=== PATIENT | female | born 1985 | race Caucasian/White ===

== ENCOUNTER 2024-08-26 11:14 | Emergency (ER) | payer BC, SELFPAY ==
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
[2024-08-26] VITALS (7 sets, daily range): BP systolic 119–130; BP diastolic 88–102; PULSE 92–107; RESP 20; TEMP 36.9; O2SAT 96–100; BMI 22.7
--- OUTSIDE RECORDS SUMMARY | 2024-08-26 11:20 | XMS_ITS | Clinical Summary ---
Author Organization [facility] Address [address] [place] [address]. [place] [address] Care Team Providers Care Court Clerk Name Role Phone [facility], [facility] ovider Allergies No known active allergies Medications sertraline (ZOLOFT) 100 MG tablet Take 100 mg by mouth daily Active acetaminophen (TYLENOL) 325 MG tabletIndication s: (spontaneous vaginal delivery) Take 2 tablets (650 mg) by mouth every 6 hours as needed for mild pain or fever (greater than or equal to 38 C /100.4 F (oral) or 38.5 C/ 101.4 F (core).) 3 Active fluticasone (FLONASE) 50 MCG/ACT nasal spray [place] 1 spray into both nostrils daily Active ibuprofen (ADVIL/MOTRIN) 200 MG tablet Take 200 mg by mouth every 4 hours as needed for pain Active multivitamin, therapeutic (THERA-VIT) TABS tablet Take 1 tablet by mouth daily Active meclizine (ANTIVERT) 25 MG tabletIndication s:Vertigo Take 1 tablet (25 mg) by mouth every 6 hours 28 tablet 4 Active folic acid (FOLVITE) 1 MG tabletIndication s:Folate deficiency Take 1 tablet (1 mg) by mouth daily 30 tablet 4 Active Active Problems Problem Noted Date Diagnosed Date Folate deficiency 07/18/2023 Influenza A 07/18/2023 Hypokalemia 07/16/2023 Hypomagnesemia 07/16/2023 Dizziness 07/16/2023 (spontaneous vaginal delivery) 07/10/2022 Chronic hypertension with superimposed preeclamp yrn 07/10/2022 08/26/2019 Vaginal delivery 08/26/2019 Encounter for triage in patient 018 Indication for care in labor or delivery 018 (normal spontaneous vaginal delivery) 05/31 Labor and delivery, indication for care 05/21/19 18 Preeclampsia 04/23/2017 Indication for care in labor and delivery, antep artum 04/09/2017 CARDIOVASCULAR SCREENING; LDL GOAL LESS THAN 160 01/06/2010 Immunizations Immunization Administration Dates Next Due HPV 02/26/2009,11/03/2006 01/03/2007 HepB 06/07/1997,10/31/1993,09/30/1993 Historical DTP/aP 05/28/1990, 7,07/11/1985,05/03/1985,1 1984 MMR (MMRII) 04/24/1997,03/28/1986 Mantoux Tuberculin Skin Test 10/19/2003 Meningococcal (Menomune ) 10/19/2003 OPV, trivalent, live 05/28/1990,07/06/1986,05/03,02/23/1985 TD,PF 7+ (Tenivac) 04/24/1997 TDAP Vaccine (Adacel) 02/26/2009 Family History Medical History Relation Comments Family History Negative Father Thyroid Disease Maternal Aunt Thyroid Disease Maternal Grandmother Thyroid Disease Mother Cancer Other 1 MGGrandf and MGG randm Cerebrovascular Disease Other 2 MGGrandm and MGaunt Family History Negative Sister Relation Status Comments Father Maternal Aunt Maternal Grandmother Mother Other 1 Other 2 Sister Social History Tobacco Use Types Packs/Day Years Used Date Smoking Tobacco: Never Smokeless Tobacco: Never Tobacco Cessation:Counseling Given: Not Answered Alcohol Use Standard Drinks/Week Comments Yes 0 (1 standard drink = 0.6 oz pur e alcohol) socially Alexis Depression Scale Answer Date Recorded Last EPDS Total Score Not on file 07/10/2022 The thought of harming myself has occurred to me . 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 Gender Identity Not on file Sexual Orientation Not on file Occupation Industry Job Start Date Job End Date student Not on file Not on file Not on file Last Filed Vital Signs Vital Sign Reading Time Taken Comments Blood Pressure 127/88 07/21/2023 11:32 AM CDT Pulse 92 07/21/2023 11:32 AM CDT Temperature 36.7 C (98.1 F) 07/21/2023 11:32 AM CDT Respiratory Rate 16 07/21/2023 11:3 2 AM CDT Oxygen Saturation 100% 07/21/2023 11: 32 AM CDT Inhaled Oxygen Concentration - - Weight 69.3 kg (152 lb 11.2 oz) 07/17/2023 2:01 AM CDT Height 175.3 cm (5' 9) 07/17/2023 2:01 AM CDT Body Mass Index 22.55 07/17/2023 2:01 AM CDT Plan of Treatment Health Maintenance Due Date Last Done Comments ADVANCE CARE PLANNING 1985 ANNUAL REVIEW OF HM ORDERS 1985 YEARLY PREVENTIVE VISIT 03/22/2022 03/22/19, 03/22/2021, 07/25/2016, Additional history exists COVID-19 VACCINE ( season) 2023 03/22/2021, 07/16/2020, 06/25/2020 PHQ-2 (once per calendar year) 2024 INFLUENZA VACCINE (Season Ended) 2024 01/10/2022, 03/22/2021, 12/05/2019, Additional history exists DIABETES SCREENING 07/19/2026 07/20/2023, 0 07/19/2023, 07/18/2023, Additional history exists HPV TEST 09/03/2027 09/02/2022, 03/22/2021 PAP 09/03/2027 09/02/2022, 03/09, 03/22/2021, Additional history exists DTAP/TDAP/TD VACCINE (12 - Td or Tdap) 06/18/2032 06/18/2022, 06/20/2019, 04/29/2017, Additional history exists ZOSTER VACCINE (1 of 2) 2034 HEPATITIS B VACCINE Completed 06/07/1997, 06/07/1997, 10/31/1993, Additional history exists MENINGITIS VACCINE Aged Out 10/19/2003 No longer eligible based on patient's age to complete this topic HPV VACCINE Completed 10/29/2010, 02/07, 11/03/2006 HEPATITIS C SCREENING Completed 12/17/2021 HIV SCREENING Completed 07/16/2023, 12/07, 01/21/2019, Additional history exists PNEUMOCOCCAL VACCINE: PEDIATRICS (0 to 5 YEARS) AND AT-RISK PATIENTS (6 to 49 YEARS) Aged Out No longer eligible based on patient's age to complete this topic Procedures Procedure Name Priority Date/Time Associated Diagnosis Comments BASIC METABOLIC PANEL STAT 07/20/2023 9:59 AM CDT GYNECOLOGIC CYTOLOGY Routine 09/02/2022 3:50 PM CDT Encounter for screening for malignant neoplasm of cervix HPV HIGH RISK TYPES DNA CERVICAL Routine 09/02/2022 3:50 PM CDT Encounter for screening for malignant neoplasm of cervix HIV ANTIGEN ANTIBODY COMBO Routine 12/17/2021 2:20 PM CDT Encounter for supervision of other normal , first trimester [ICD-10-CM] HEPATITIS C ANTIBODY Routine 12/17/2021 2:20 PM CDT Encounter for supervision of other normal , first trimester [ICD-10-CM] from Last 3 Months or Most Recently Relevant to Health Maintenance Results * (ABNORMAL) Basic metabolic panel (07/20/2023 9:59 AM CDT) Sodium 142 135 - 145 mmol/L 07/20/2023 10:25 AM CDT [facility] Comment:Reference intervals for this test were updated on 12/02/2022 to more accurately reflect our healthy population. There may be differences in the flagging of prior results with similar values performed with this method. Interpretation of those prior results can be made in the context of the updated reference intervals. Potassium 4.5 3.4 - 5.3 mmol/L 07/20/2023 10:25 AM CDT LABORATORY Chloride 109(H) 98 - 107 mmol/L 07/20/2023 10:25 AM CDT LABORATORY Carbon Dioxide (CO2) 21(L) 22 - 29 mmol/L 07/20/2023 10:25 AM CDT LABORATORY Anion Gap 12 7 - 15 mmol/L 07/20/2023 10:25 AM CDT LABORATORY Urea Nitrogen 5.2(L) 6.0 - 20.0 mg/dL 07/20/2023 10:25 AM CDT LABORATORY Creatinine 0.58 0.51 - 0.95 mg/dL 07/20/2023 10:25 AM CDT LABORATORY GFR Estimate >90 >60 mL/min/1. 73m2 07/20/2023 10:25 AM CDT LABORATORY Calcium 8.8 8.6 - 10.0 mg/dL 07/20/2023 10:25 AM CDT LABORATORY Glucose 88 70 - 99 mg/dL 07/20/2023 10:25 AM CDT LABORATORY Blood BLOOD SPECIMEN / Unknown Venipuncture / Unknown 07/20/2023 9:59 AM CDT 07/20/2023 10:03 AM CDT us Aurora Malave PA-C LAB - BLOOD ORDERABLES Fin al Result LABORATORY [facility] Acute Care Lab [address] [facility] (1st floor, no room number) [place] [address], [facility] * (ABNORMAL) Gynecologic Cytology (PAP) (09/02/2022 3:50 PM CDT) Interpretation Atypical squamous cells of undetermined significance (ASC-US)(A) 09/05/2022 3:41 PM CDT [facility] at 1541 CDT Comment Papanicolaou Test Limitations: Cervical cytology is a screening test with limited sensitivity, and regular screening is critical for cancer prevention. Pap tests are primarily effective for the diagnosis/preven tion of squamous cell carcinoma, not adenocarcinoma or other cancers. 09/05/2022 3:41 PM CDT LABORATORY Specimen Adequacy Satisfactory for evaluation, endocervical/tra nsformation zone component present 09/05/2022 3:41 PM CDT [facility] Clinical Information post- 09/05/2022 3:41 PM CDT [facility] LMP/Menopause Date NONE 09/05/2022 3:41 PM CDT [facility] Reflex Testing Yes regardless of result 09/05/2022 3:41 PM CDT [facility] Previous Abnormal? No 09/05/2022 3:41 PM CDT [facility] Previous Abnormal Diagnosis Neg/Neg hpv 09/05/2022 3:41 PM CDT [facility] Performing Labs The technical component of this testing was completed at [facility] 09/05/2022 3:41 PM CDT [facility] Brushing CERVIX UTERI STRUCTURE / Unknown 09/02/2022 3:50 PM CDT 09/02/2022 8:21 PM CDT us Oriana Cummings MD LAB - RAGHUAKER AP Final Result LABORATORY [facility] Acute Care Lab [address] Lab (1st floor, no room number) [place] [address], [facility] [phone] [facility] Specialty Lab [address] [facility], Room [address] [place] [id number], [facility] [phone] * HPV High Risk Types DNA Cervical (09/02/2022 3:50 PM CDT) Other HR HPV Negative Negative 09/08/2022 1:25 PM CDT [facility] HPV16 DNA Negative Negative 09/08/2022 1:25 PM CDT [facility] HPV18 DNA Negative Negative 09/08/2022 1:25 PM CDT [facility] FINAL DIAGNOSIS This patient's sample is negative for HPV DNA. This test was developed and its performance characteristics determined by the [facility], [facility] Laboratory. It has not been cleared or approved by the FDA. The laboratory is regulated under CLIA as qualified to perform high-complexity testing. This test is used for clinical purposes. It should not be regarded as investigational or for research. METHODOLOGY: The Stiven Dahiana 4800 system uses automated extraction, simultaneous amplification of HPV (L1 region) and beta-globin, followed by real time detection of fluorescent labeled HPV and beta globin using specific oligonucleotide probes. The test specifically identifies types HPV 16 DNA and HPV 18 DNA while concurrently detecting the rest of the high risk types (31, 33, 35, 39, 45, 51, 52, 56, 58, 59, 66 or 68). COMMENTS: This test is not intended for use as a screening device for woman under age 30 with normal cervical cytology. Results should be correlated with cytologic and histologic findings. Close clinical followup is recommended. 09/08/2022 1:25 PM CDT [facility] Brushing CERVIX UTERI STRUCTURE / Unknown Non-blood Collection / Unknown 09/02/2022 3:50 PM CDT 09/08/2022 7:46 AM CDT Oriana Cummings MD LAB - BLOOD ORDERABLES Final R esult [facility] [address] [facility], [address] [place] [phone], [facility] [phone] * HIV Antigen Antibody Combo (12/17/2021 2:20 PM CDT) HIV Antigen Antibody Combo Nonreactive Nonreactive 12/18/2021 11:08 AM CDT [facility] CORE/PROT/EN DO Comment:HIV-1 p24 Ag & HIV-1 /HIV-2 Ab Not Detected Blood BLOOD SPECIMEN / Unknown Client Draw / Unknown 12/17/2021 2:20 PM CDT 12/17/2021 8:39 PM CDT Oriana Cummings MD LAB - BLOOD ORDERABLES Final R esult [facility]/PROT/ENDO [facility]/Prot/Endo [address] [facility] [address] [facility], Room [address] [phone] * Hepatitis C antibody (12/17/2021 2:20 PM CDT) Hepatitis C Antibody Nonreactive Nonreactive 12/18/2021 11:08 AM CDT [facility]PROT/EN DO Blood BLOOD SPECIMEN / Unknown Client Draw / Unknown 12/17/2021 2:20 PM CDT 12/17/2021 8:39 PM CDT Narrative [facility]/PROT/ENDO - 12/18/2021 11:08 AM CDT Assay performance characteristics have not been established for newborns, infants, and children. us Oriana Cummings MD LAB - BLOOD ORDERABLES Final R esult [facility]/PROT/ENDO [facility] Core/Prot/Endo [address] [facility] [address] [facility], [address] [phone] from Last 3 Months or Most Recently Relevant to Health Maintenance Insurance [facility] BCBS OF [place] Advance Directives For more information, please contact: [phone] * Full Code (Latest Code Status on File) Date Activated Date Inactivated Comments 07/17/2023 12:41 AM 07/21/2023 3:24 PM All basic a nd advanced life-sustaining interventions are performed as appropriate Question Answer Comments Code status determined by: Discussion with kaveh nt/ legal decision maker * Full Code Date Activated Date Inactivated Comments 07/07/2022 4:20 PM 07/10/2022 7:31 PM All basic and advanced life-sustaining interventions are performed as appropriate Question Answer Comments Code status determined by: Discussion with willarde nt/ legal decision maker Care Teams Court Clerk Relationship Specialty Start Date End Date [facility], [facility] [address] [place], [place] [id number] PCP - General 08/05/22
--- OUTSIDE RECORDS SUMMARY | 2024-08-26 11:21 | XMS_ITS | Encounter Summary ---
Author Organization [facility] Address [address] [place] [address] Care Team Providers Care Ham Clerk Name Role Phone Jaylin Gonzalez APRN, DEVIKA Primary Care Provid er Encounter Details Date Type Department Care Team (Late st Contact Info) Description 06/15/2024 E-Visit [facility] Medicine [address] [facility] [place] [address] [place] [address] Social History Tobacco Use Types Packs/Day Years Used Date Smoking Tobacco: Never Smokeless Tobacco: Never Alcohol Use Standard Drinks/Week Comments Yes 7 (1 standard drink = 0.6 oz pur e alcohol) Mostly w/ Dinner Humiliation, Afraid, Rape, and Kick questionnair e Answer Date Recorded Within the last year, have y ou been afraid of your partner or ex-partner? No 05/12/2024 Within the last year, have y ou been humiliated or emotionally abused in other ways by your partner or ex-partner? No Within the last year, have y ou been kicked, hit, slapped, or otherwise physically hurt by your partner or ex-partner? No 05/12/2024 Within the last year, have y ou been raped or forced to have any kind of sexual activity by your partner or ex-partner? 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
--- OUTSIDE RECORDS SUMMARY | 2024-08-26 11:21 | XMS_ITS | Encounter Summary ---
Author Organization [facility] Address [address] [place] [address] Care Team Providers Care Cdl A Driver Name Role Phone Latrice Wan Primary Care Provider [phone] Encounter Details Date Type Department Care Team (Latest Contact Info) Description 08/04/2024 Travel Social History Tobacco Use Types Packs/Day Years [...] AM CDT documented as of this encounter Plan of Treatment Upcoming Encounters Date Type Department Care Team (Late st Contact Info) Description 09/01/2024 8:00 AM CDT Office Visit [address] [phone] Latrice Wan PAC [address] [place] [phone] documented as of this encounter Visit Diagnoses Not on filedocumented in this encounter Additional Health Concerns Assessment Noted Time PHQ-9 Depression Total Score: 5 05/10/19 25 10:48 AM PST documented as of this encounter Care Teams Cdl A Driver Relationship Specialty Start Date End Date Latrice Wan PAC [address] [place] [phone] PCP - General [facility] MEDICINE[place] 06/02/24 documented as of this encounter
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
--- OUTSIDE RECORDS SUMMARY | 2024-08-26 11:21 | XMS_ITS | Clinical Summary ---
Author Organization [facility] Address [address] [place] [address] Care Team Providers Care Charge Machine Operator Name Role Phone Latrice Wan Primary Care Provider [phone] Allergies No known active allergies Encounters Date Type Department Care Team Description 07/05/2024 9:33 PM CDT - 07/05/2024 11:28 PM CDT Emergency [address] [address] Juan Carlos Connolly MD Acute alcoholic intoxication without complication (Primary Dx) Discharge Disposition: Home Self Care 07/05/2024 Travel from Last 3 Months Social History Tobacco Use Types Packs/Day Years Used Date Smoking Tobacco: Never Assessed Interpersonal Safety Answer Date Record ed Are you being hit, kicked, p ushed or yelled at (see row info)? No 07/05/2024 Interpersonal Safety Abuse 12 - 18 Not on file 07/05/2024 Interpersonal Safety Ambulatory Vulnerability No t on file 07/05/2024 Comments Unknown Sex and Gender Information Value Date Recorded Sex Assigned at Not on file Legal Sex Female 9:33 PM CDT Gender Identity Not on file Sexual Orientation Not on file Last Filed Vital Signs Vital Sign Reading Time Taken Comments Blood Pressure 99/55 07/05/2024 11:00 PM CDT Pulse 80 07/05/2024 11:00 PM CDT Temperature 36.8 C (98.2 F) 07/05/2024 10:08 PM CDT Respiratory Rate 16 07/05/2024 11:00 PM CDT Oxygen Saturation 99% 07/05/2024 11:00 PM CDT Inhaled Oxygen Concentration - - Weight 72.6 kg (160 lb) 07/05/2024 9:58 PM CDT Height 177.8 cm (5' 10) 07/05/2024 9:58 PM CDT Body Mass Index 22.96 07/05/2024 9:58 PM CDT Plan of Treatment Health Maintenance Due Date Last Done Comments Tdap 12/31/1995 Depression screening for age 12+ 1996 HIV for age 15-65 12/31/1999 BMI (ht and wt on same day) for age 18+ 2002 Hepatitis C screening for ag e 18-79 2002 Hepatitis B series for 19+ ( 1 of 3 - 19+ 3-dose series) 12/31/2003 Tetanus booster 2004 Pap test for age 21-65 2005 COVID-19 vaccine series (2023- season) 2023 03/22/2021, 07/16/2020, 06/25/2020 Influenza Vaccine (Season Ended) 2024 Pneumococcal series for age 6-49 Aged Out No longer eligible b ased on patient's age to complete this topic Procedures Procedure Name Priority Date/Time Associated Diagnosis Comments BEDSIDE US STUDY ARCHIVE Routine 07/05/2024 10:04 PM CDT from Last 3 Months Insurance [facility] Care Teams Charge Machine Operator Relationship Specialty Start Date End Date Latrice Wan PA [address] [place] [id number] PCP - General Physician Boxer Operator 07/05/24
--- OUTSIDE RECORDS SUMMARY | 2024-08-26 11:21 | XMS_ITS | Encounter Summary ---
Author Organization [facility] Address [address] [place] [address]. [place] [address] Care Team Providers Care Advertising Sales Representative Name Role Phone Salomon Casas Primary Care Provider [facility] [place] [facility] [place] Primary Care Pr ovider Encounter Details Date Type Department Care Team (Late st Contact Info) Description 07/04/2022 External Order Results [facility] [address] [place] [phone] Outside, Provider Social History Tobacco Use Types Packs/Day Years Used Date Smoking Tobacco: Never Smokeless Tobacco: Never Alcohol Use Standard Drinks/Week Comments No 0 (1 standard drink = 0.6 oz pur e alcohol) 1 time a week Gardners Depression Scale Answer Date Recorded Gardners Depression Score 6 08/27/2019 Last EPDS Self Harm Result Not on file 08/26 Comments Yes Sex and Gender Information Value Date Recorded Sex Assigned at Not on file Legal Sex Female 3:23 AM ALUMNI RELATIONS OFFICER Gender Identity Not on file Sexual Orientation Not on file Occupation Industry Job Start Date Job End Date student Not on file Not on file Not on file COVID-19 Exposure Response Date Recorded In the last 10 days, have yo u been in contact with someone who was confirmed or suspected to have Coronavirus/COVID-19? No / Unsure 07/07/2022 10:17 AM CDT documented as of this encounter Plan of Treatment Not on file documented as of this encounter Procedures Procedure Name Priority Date/Time Associated Diagnosis Comments HEMOGLOBIN Routine 07/04/2022 4:40 PM CDT documented in this encounter Results * (ABNORMAL) Hemoglobin (07/04/2022 4:40 PM CDT) Hemoglobin (External) 10.2(L) 12.0 - 15.0 G/DL NON-INTERFACE D (ONBASE SCANS) Blood BLOOD SPECIMEN / Unknown 07/04/2022 4:40 PM CDT Narrative [facility] PFT - 07/16/2022 12:48 PM CDT Verified by Kimmie Dow on 07/16/2022. us Provider Outside LAB - BLOOD ORDERABLES Edited R esult - Final [facility] PFT NON-INTERFACED (ONBASE SCANS) documented in this encounter Visit Diagnoses Not on filedocumented in this encounter Additional Health Concerns Infection Onset Date Last Indicated Resolved Time Rule Out COVID-19 07/07/2022 07/07/2022 07/07/2022 5:35 PM CDT Rule Out COVID-19 07/16/2023 07/16/2023 07/16/2023 9:26 PM CDT Influenza 07/16/2023 07/16/2023 07/23/2023 11:3 9 PM CDT Rule Out C-difficile 07/17/2023 07/17/2023 024 2:33 PM CDT C-difficile 07/17/2023 07/17/2023 08/16/2023 11:3 9 PM CDT documented as of this encounter Care Teams Advertising Sales Representative Relationship Specialty Start Date End Date Salomon Casas PCP - General [facility]02[facility] [address] [place] [address] PCP - General 08/05/22 documented as of this encounter
--- OUTSIDE RECORDS SUMMARY | 2024-08-26 11:21 | XMS_ITS | Clinical Summary ---
Author Organization [facility] [employer] Address [address] [place] [address] Care Team Providers Care Crystal Grinder Name Role Phone Unknown, Provider Primary Care Provider Unavaila ble Source Comments [facility] [employer],non-owned Affiliates and Associated Physician Practices is amultiple site organization consisting of ambulatory clinics and hospital sitesin [place], [place], [place] and [place]. This disclosure is being madepursuant to the Care Everywhere program and may not contain all information available regarding this patient. Last updated 17.[facility] [employer] Allergies No known active allergies Medications * Be aware that medications may not be up to date on this document. Alwaysverify current medications with the patient. lidocaine (XYLOCAINE) 2 % viscous solution Swish and spit 10-ml every 4 hours PRN sore throat 120 mL 1 5 Active Additional Information Patient not taking.Reported on 02/05/2019 predniSONE (DELTASONE) 20 MG tablet Take 1 Tab by mouth 2 times daily 10 tablet 0 5 Active Additional Information Patient not taking.Reported on 02/05/2019 Active Problems Problem Noted Date Diagnosed Date Overweight 01/14/2015 Somatic dysfunction of cervical region 1 Thoracic region somatic dysfunction 11/25/2010 Rib cage region somatic dysfunction 11/25/2010 Pain, upper back 11/25/2010 Abnormal laboratory test result 04/08/2010 Overview (11/01/2017): Abnormal TSH labs done initially in [place] Comments Yes Immunizations Immunization Administration Dates Next Due DTaP VACCINE IM (6wk-6yrs) 05/28/1990,,07/11/1985,05/03/1985, HEP B VACCINE, PED/ADOL 06/07/1997,10/31/1993, Human Papilloma Virus Vaccine 10/29/2010 MENINGOCOCCAL UNSPECIFIED 10/19/2003 MMR 04/24/1997,03/28/1986 POLIO IPV 05/28/1990,07/06/1986,05/03/1985 ,02/23/1985 TD (AGE 7-ADULT) 04/24/1997 TDAP (7yrs+) 10/29/2010 Family History Medical History Relation Name Comments Allergies Father Status: Alive Thyroid Disease Maternal Aunt Allergies Maternal Extended Family Alcohol abuse Maternal Grandfather Cancer - Prostate Maternal Grandfather Diabetes Maternal Grandfather Hypertension Maternal Grandfather Hypertension Maternal Grandmother Osteoporosis Maternal Grandmother Thyroid Disease Maternal Grandmother Allergies Mother Hypertension Mother Thyroid Disease Mother Status: Aliv e Thyroid Disease Paternal Aunt Allergies Paternal Extended Family Hypertension Paternal Grandmother Thyroid Disease Sister 1 None Known Sister 2 Status: Alive Relation Name Status Comments Father Maternal Aunt Maternal Extended Family Maternal Grandfather Maternal Grandmother Mother Paternal Aunt Paternal Extended Family Paternal Grandmother Sister 1 Sister 2 Social History Tobacco Use Types Packs/Day Years Used Date Smoking Tobacco: Never Smokeless Tobacco: Never Alcohol Use Standard Drinks/Week Comments Not Currently 2.5 (1 standard drink = 0.6 oz p ure alcohol) Comments Yes Sex and Gender Information Value Date Recorded Sex Assigned at Not on file Legal Sex Female 9:36 PM CDT Gender Identity Not on file Sexual Orientation Not on file Last Filed Vital Signs Vital Sign Reading Time Taken Comments Blood Pressure 100/83 02/05/2019 5:00 AM REAL ESTATE REPRESENTATIVE Pulse 85 02/05/2019 5:00 AM REAL ESTATE REPRESENTATIVE Temperature 36.7 C (98 F) 02/05/2019 5:00 AM REAL ESTATE REPRESENTATIVE Respiratory Rate 18 02/05/2019 5:00 AM REAL ESTATE REPRESENTATIVE Oxygen Saturation 100% 02/05/2019 5:00 AM REAL ESTATE REPRESENTATIVE Inhaled Oxygen Concentration - - Weight 79.4 kg (175 lb) 02/05/2019 5:00 AM REAL ESTATE REPRESENTATIVE Height 172.7 cm (5' 8) 02/05/2019 5:00 AM REAL ESTATE REPRESENTATIVE Body Mass Index 26.61 02/05/2019 5:00 AM REAL ESTATE REPRESENTATIVE Plan of Treatment Health Maintenance Due Date Last Done Comments HPV VACCINE (2 - 3-dose series) 11/26/2010 10/29/2010 DTAP/TDAP/TD VACCINES (8 - Td or Tdap) 10/29/2020 10/29/2010, 04/24/1997, 05/28/1990, Additional history exists COVID-19 VACCINE ( - 2023- season) 2023 DEPRESSION SCREENING 03/09/2024 INFLUENZA VACCINE (Season Ended) 2024 ZOSTER VACCINE (1 of 2) 2034 Respiratory Syncytial Virus (RSV) Vaccine Pt: or over 60 yrs (1 - 1-dose 75+ series) 12/31/2059 HEPATITIS B VACCINE Completed 06/07/1997, 10/31/1993, 09/30/1993 MENINGOCOCCAL GROUPS A/C/Y/W VACCINE Completed 10/19/2003 HEPATITIS C SCREENING Completed 01/21/2019 HIV SCREENING Completed 01/21/2019 HIB VACCINE Aged Out No longer eligi ble based on patient's age to complete this topic MENINGOCOCCAL (Group B) VACCINE SHARED DECISION-MAKING Aged Out No longer eligible based on patient's age to complete this topic PNEUMOCOCCAL VACCINE Aged Out No long er eligible based on patient's age to complete this topic Insurance [facility] Care Teams Crystal Grinder Relationship Specialty Start Date End Date Unknown, Provider PCP - General 07/18/15
--- OUTSIDE RECORDS SUMMARY | 2024-08-26 11:21 | XMS_ITS | Clinical Summary ---
Author Organization [facility] Address [address], [place] [address] Care Team Providers Care Mig Tig Welder Name Role Phone Jaylin Gonzalez APRN, CNP Primary Care Provid er Source Comments You are receiving this document as you are listed as the primary care provider,follow-up provider, or the patient has been referred to you for consultation.This is in compliance with the Medicare and[facility] EHR Incentive Program,which states Providers who transition their patient to another setting of careor provider of care or refers their patient to another provider of care shouldprovide summary care record for each transition of care or referral. [facility] Allergies No known active allergies Medications Multiple Vitamin (THERA) Take 1 Tablet by mouth daily. Active sertraline (ZOLOFT) 100 MG tabletIndicatio ns:Mild depression,Anxi ety (HRC) Take 0.5 Tablets (50 mg) by mouth daily for 7 days, THEN 1 Tablet (100 mg) daily for 7 days, THEN 1.5 Tablets (150 mg) daily for 7 days. 125 Tablet 3 4 Active hydrOXYzine HCl (ATARAX) 50 MG tabletIndicatio ns:Mild depression,Anxi ety (HRC) Take 1 Tablet (50 mg) by mouth two times a day. 60 Tablet 1 4 Active folic acid 1 MG tablet Take 1 Tablet (1 mg) by mouth daily. 5 Active naltrexone (REVIA) 50 MG tablet Take 1 Tablet (50 mg) by mouth daily at bedtime. 5 Active MAG64 64 MG controlled release tablet Take 1 Tablet (64 mg elemental magnesium) by mouth three times a day. 5 Active THIAMINE 100 MG tablet Take 1 Tablet (100 mg) by mouth three times a day. 5 Active Active Problems Problem Noted Date Diagnosed Date Alcohol intoxication with mild use disorder, unc omplicated 05/12/2024 Essential hypertension 02/22/2024 Overview (02/22/2024): CHTN vs GHTN. BP elevated starting at 20 wks. Labetalol 200 mg BID. Irritable bowel syndrome 07/29/2023 Vestibular neuritis 07/29/2023 Folate deficiency 07/18/2023 Hypokalemia 07/16/2023 Chronic hypertension with superimposed preeclamp yrn 07/10/2022 Overweight (BMI 25.0-29.9) 03/22/2021 Anxiety 01/03/2020 Mild depression 08/02/2013 Borderline abnormal thyroid function test 2012 Resolved Problems Problem Noted Date Diagnosed Date Resolved Date Hypomagnesemia 07/16/2023 08/16/2023 (spontaneous vaginal delivery) 07/10/2022 02/22/2024 Cyst of right ovary 08/20/2015 03/22/19 22 Encounters Date Type Department Care Team Description 06/20/2024 10:00 AM CDT Telemedicine [facility] [address] [place] [address]. [place] [address] Kelly Diaz PA-C Encounters for administrative purposes (Primary Dx) 06/15/2024 E-Visit [facility] [address] [facility] [address] [place] [address] [place], Generic Provider 06/11/2024 Refill [facility] [address] [facility] [place] [address] Kelly Diaz PA-C Refill (hydrOXYzine HCl (ATARAX) 50 MG tablet [Pharmacy Med Name: HYDROXYZINE HCL 50 MG TABLET]) from Last 3 Months Immunizations Immunization Administration Dates Next Due 4vHPV (Gardasil) 02/26/2009,11/03/2006 DTP 05/28/1990, 7,07/11/1985,1985,02/23/1985 Flu Vac (3+ yrs) 01/21/2019 Flu Vac Preserv Free (3+yrs) 12/10/2016 HPV, Unspecified Formulation 10/29/2010 HepB Ped/Adol (0-18 yrs) 06/07/1997,10/31/1993,0 09/30/1993 IPV (Polio) 05/28/1990, 7,05/03/1985,1984 Influenza (Flucelvax), Prese rv Free QIV 01/10/2022 Influenza IIV4 (Quadrivalent ) 0.5mL (46379) 03/22/2021,12/05/2019,01/05/2018,2015,02/17/2014 MMR 04/24/1997,03/28/1986 MPSV4 (Menomune) 10/19/2003 Pfizer Monovalent 12+ Purple Top 03/22/2021,07/07,06/25/2020 TB Skin Test (PPD) 10/19/2003 Td 04/24/1997 Td (7+ yrs) 04/24/1997 Tdap 06/18/2022, 0,04/29/2017,2017,10/29/2010,02/26/2009 Family History Medical History Relation Name Comments High Cholesterol Mother Yumiko greenfield Thyroid Disorder Mother Yumiko greenfield Diabetes Maternal Grandfather Luis garcia High Cholesterol Maternal Grandfather Luis garcia Cataract Maternal Grandmother Malena garcia High Cholesterol Maternal Grandmother Malena garcia Thyroid Disorder Maternal Grandmother Malena garcia Thyroid Disorder Paternal Grandmother Thyroid Disorder Sister Amblyopia/Strabismus Negative Family History Cancer Negative Family History Cancer, Breast Negative Family History Cancer, Ovary Negative Family History Glaucoma Negative Family History Macular Degeneration Negative Family History Retinal Detachment Negative Family History Relation Name Status Comments Father Alive Mother Bethe bruchez Alive Maternal Grandfather Luis garcia Alive Maternal Grandmother Malena garcia Alive Paternal Grandfather Alive Paternal Grandmother Alive Sister Alive Social History Tobacco Use Types Packs/Day Years [...] 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[employer] Not on file Not on alejandra e Not on file Last Filed Vital Signs Vital Sign Reading Time Taken Comments Blood Pressure 113/84 05/12/2024 12:07 AM VALET SERVICE ATTENDANT Pulse 85 05/12/2024 12:07 AM VALET SERVICE ATTENDANT Temperature 36.9 C (98.5 F) 05/12/2024 12:07 AM VALET SERVICE ATTENDANT Respiratory Rate 18 05/12/2024 12:07 AM VALET SERVICE ATTENDANT Oxygen Saturation 100% 05/12/2024 12:07 AM VALET SERVICE ATTENDANT Inhaled Oxygen Concentration - - Weight 68.5 kg (151 lb) 07/16/2023 10:17 AM CDT Height 176 cm (5' 9.29) 03/22/2021 7:07 AM VALET SERVICE ATTENDANT Body Mass Index 22.11 03/22/2021 7:07 AM VALET SERVICE ATTENDANT Plan of Treatment Health Maintenance Due Date Last Done Comments Hep C Screening (Preventive Services) 1984 Adult Preventive Visit 03/22/2023 03/22/2021, 2016 COVID-19 Vaccine ( season) 2023 03/22/2021, 07/16/2020, 06/25/2020 Influenza Vaccine (Season Ended) 2024 01/10/2022, 03/22/2021, 12/05/2019, Additional history exists Cervical Cancer Screening 03/22/20262021, 03/22/2021, 04/23/2015, Additional history exists DTaP/Tdap/Td Vaccine (12 - Tdap) 06/18/2032 06/18/2022, 06/20/2019, 04/29/2017, Additional history exists Zoster/Shingles Vaccine (1 of 2) 2034 IPV (Polio) Vaccine Completed 05/28/1990, 07/06/1986, 05/03/1985, Additional history exists HepB Vaccine Completed 06/07/1997, 10/08, 09/30/1993 MCV4 Vaccine Aged Out 10/19/2003 No longer eligi ble based on patient's age to complete this topic HPV Vaccine Completed 10/29/2010, 02/07, 11/03/2006 HIV Screening (Preventive Services) Completed 07/16/2023, 09/25/2016 HepA Vaccine Aged Out No longer eligi ble based on patient's age to complete this topic Hib Vaccine Aged Out No longer eligi ble based on patient's age to complete this topic Meningococcal B Vaccine Aged Out No l onger eligible based on patient's age to complete this topic Pneumococcal Vaccine Aged Out No long er eligible based on patient's age to complete this topic Procedures Procedure Name Priority Date/Time Associated Diagnosis Comments HIV 1/2 AG/AB 4TH GEN Routine 07/16/2023 11:49 AM CDT Abnormal weight loss CYTOLOGY (PAP) Routine 03/22/2021 8:29 AM VALET SERVICE ATTENDANT Screening for malignant neoplasm of cervix from Last 3 Months or Most Recently Relevant to Health Maintenance Results * HIV 1/2 Ag/Ab 4th Generation (07/16/2023 11:49 AM CDT) HIV 1/2 Antigen/Antib sergio (4th generation) Negative (Non Reactive) Negative (Non Reactive) 07/16/2023 4:39 PM CDT [facility] Comment:HIV-1 p24 Antigen an d HIV-1/HIV-2 Antibody not detected Blood Venipuncture / Unknown 07/16/2023 11:49 AM CDT 07/16/2023 11:49 AM CDT us Marvin Angel APRN, BRUSH MAKER LAB_1 Final Result [facility] [address] [place] [address], [facility] * PAP Test (03/22/2021 8:29 AM VALET SERVICE ATTENDANT) Case Report Pap Case: [id number] Authorizing Provider: Jaylin Gonzalez APRN, Collected: 03/22/2021 0829 BRUSH MAKER Ordering Location: [facility] Received: 03/22/2021 1017 First Screen: Zeinab Ling Rescreen: Christina Jung CT (ASCP) Specimen: Pap Test, Routine, Cervix/Endocervix 04/04/2021 1:13 PM VALET SERVICE ATTENDANT [facility] Pap Specimen Adequacy Satisfactory for evaluation, endocervical/cloud sformation zone component present. 04/04/2021 1:13 PM VALET SERVICE ATTENDANT [facility] Pap Interpretation (NILM) Negative for intraepithelial lesion or malignancy. 04/04/2021 1:13 PM VALET SERVICE ATTENDANT [facility] at 1313 VALET SERVICE ATTENDANT Pap Disclaimer The Pap test is a screening test designed to aid in the detection of cervical cancer and its precursor lesions. It is not a diagnostic procedure and should not be used as the sole means of detecting cervical cancer. Both false-positive and false-negative results may occur. 04/04/2021 1:13 PM VALET SERVICE ATTENDANT [facility] Gross Description The specimen is received in SurePath fixative and properly labeled. 1 Pap-stained SurePath slide is prepared. 04/04/2021 1:13 PM VALET SERVICE ATTENDANT [facility] Embedded Images 01/27/202 2 1:13 PM VALET SERVICE ATTENDANT [facility] Other Specimen Type ENTIRE ENDOCERVIX / Unknown 03/22/2021 8:29 AM VALET SERVICE ATTENDANT 03/22/2021 10:17 AM VALET SERVICE ATTENDANT Comment:LMP: Patient's last menstrual period was 03/01/2021 (approximate). us Jaylin Gonzalez INSURANCE CLAIM REPRESENTATIVE, [facility] PATHOLOGY Britany l Result [facility] [address] from Last 3 Months or Most Recently Relevant to Health Maintenance Insurance [place] [id number] [facility] Care Teams Mig Tig Welder Relationship Specialty Start Date End Date Jaylin Gonzalez, INSURANCE CLAIM REPRESENTATIVE, BRUSH MAKER [id number] [place] [address] PCP - General 07/28/13
--- OUTSIDE RECORDS SUMMARY | 2024-08-26 11:22 | XMS_ITS | Data Portability ---
Author Organization [facility] ACTUARIAL CLERK, [id number] Address [address] [place] [address] Assessment Encounter Date Assessment Date Assessment LastModified by Organization Details LastModified Time 07/18/2022 07/18/2022 I spent a total of 20 minutes providing care for this patient including: preparing to see the patient, obtaining a medical history, completing a medically appropriate physical exam, completing documentation of visit information and plans in the EMR, counseling the patient and/or caregiver regarding her diagnosis, treatment options and follow up plans amesch Not available 07/19/2022 21:05:33 Plan of Treatment Reminders Order Date Submit Date Provider Last Modified By Organization Details Last Modified Time Details Appointments None recorded. Lab hemoglobin (Hb), fingerstick , blood 2022 023 ameschke [email or web address]_mfpcepu _[place] , [address] [place] [address], [address], [place], [address], 3 15:32:35 TSH, serum or plasma [address] [facility], [address] [facility], [address], [place], [address], 3 15:07:36 Pap test, slide(s), cervical [address] [facility], [address], [address], [place], [address], 3 14:28:27 streptococc us group B DNA [address] [facility], [address] [facility] [address], [address], [place], [address], 22:49:21 hemoglobin (Hb), fingerstick , blood 2022 023 anh Mao_shawn melendez_[place] , [address] [facility], [address], [place], [address], 3 18:05:04 Referral None recorded. Procedures None recorded. Surgeries None recorded. Imaging non-stress test 2022 023 [place] , [address] [facility], [address], [place], [address], 3 14:07:43 US, obstetric, biophysical profile 2022 023 [place] Bronwyn melendez_[place], [address], [address], [place], [address], 3 16:57:22 US, obstetric, biophysical profile 2022 023 lkoidahl [email or web address]_aulfzed le_[place], [address], [address], [place], [address], 3 14:36:58 Medication Orders labetalol 100 mg tablet 2022 023 anh [facility] [employer], [address] [facility], [place], [address], 3 18:28:07 Patient TargetsNo targets recorded. Patient InstructionsNo instructions recorded. Reason for Referral None Reported. Results Created Date Observation Date Name Description Value Unit Range Abnormal Flag Note LastModifiedBy Organization Detail LastModifiedTime 06/04/19 23 06/03/2022 URINE CULTU RE urine culture SEE RESULT S BELOW SPECI MEN SOURC E Urine Other CULTU RE RESUL TS No Growt h REPOR T STATU S FINAL 06/05 Not Available [address], [place], [address], 06/05/2022 06:30:55 06/04/19 23 06/03/2022 urina lysis , dipst ick Unknown Analyte Clean Catch Not Available [address], [place], [address], 06/03/2022 14:25:30 06/04/19 23 06/03/2022 urina lysis , dipst ick Unknown Analyte negati ve Not Available [address] [address], [place], [address], 06/03/2022 14:25:30 06/04/19 23 06/03/2022 urina lysis , dipst ick Unknown Analyte negati ve Not Available [address], [place], [address], 06/03/2022 14:25:30 06/04/19 23 06/03/2022 urina lysis , dipst ick Unknown Analyte negati ve Not Available [address], [place], [address], 06/03/2022 14:25:30 06/04/19 23 06/03/2022 urina lysis , dipst ick Unknown Analyte 1.005 Not Available [address], [place], [address], 06/03/2022 14:25:30 06/04/19 23 06/03/2022 urina lysis , dipst ick Unknown Analyte negati ve Not Available [email or web address]_fmerl da le_[place] [address], [place], [address], 06/03/2022 14:25:30 06/04/19 23 06/03/2022 urina lysis , dipst ick Unknown Analyte 6.0 Not Available [address], [place], [address], 06/03/2022 14:25:30 06/04/19 23 06/03/2022 urina lysis , dipst ick Unknown Analyte negati ve Not Available [address], [place], [address], 06/03/2022 14:25:30 06/04/19 23 06/03/2022 urina lysis , dipst ick Unknown Analyte 0.2 Not Available [address], [place], [address], 06/03/2022 14:25:30 06/04/19 23 06/03/2022 urina lysis , dipst ick Unknown Analyte negati ve Not Available [address], [place], [address], 06/03/2022 14:25:30 06/04/19 23 06/03/2022 urina lysis , dipst ick Unknown Analyte trace Not Available [address], [place], [address], 06/03/2022 14:25:30 06/04/19 23 06/03/2022 urina lysis , dipst ick Unknown Analyte yellow Not Available [address], [place], [address], 06/03/2022 14:25:30 06/04/19 23 06/03/2022 urina lysis , dipst ick Unknown Analyte clear Not Available [id number] southda le_[place] [address] [facility] [address], [place], [address], 06/03/2022 14:25:30 06/28/19 23 06/27/2022 CBC WITH PLATE LETS WBC count 7.3 10e3/ uL 4.0-11 .0 Not Available [address], [place], [address], 06/27/2022 22:33:10 06/28/19 23 06/27/2022 CBC WITH PLATE LETS RBC count 3.55 10e6/ uL 3.80-5 .20 low Not Available [address], [place], [address], 06/27/2022 22:33:10 06/28/19 23 06/27/2022 CBC WITH PLATE LETS hemoglobin 11.8 g/dL 11.7-1 5.7 Not Available [address], [place], [address], 06/27/2022 22:33:10 06/28/19 23 06/27/2022 CBC WITH PLATE LETS hematocrit 37.0 % 35.0-4 7.0 Not Available [address], [place], [address], 06/27/2022 22:33:10 06/28/19 23 06/27/2022 CBC WITH PLATE LETS MCV 104 fL 78-100 high Not Available [address], [place], [address], 06/27/2022 22:33:10 06/28/19 23 06/27/2022 CBC WITH PLATE LETS MCH 33.2 pg 26.5-3 3.0 high Not Available [address], [place], [address], 06/27/2022 22:33:10 06/28/19 23 06/27/2022 CBC WITH PLATE LETS MCHC 31.9 g/dL 31.5-3 6.5 Not Available [address], [place], [address], 06/27/2022 22:33:10 06/28/19 23 06/27/2022 CBC WITH PLATE LETS RDW 13.3 % 10.0-1 5.0 Not Available [address], [place], [address], 06/27/2022 22:33:10 06/28/19 23 06/27/2022 CBC WITH PLATE LETS platelet count 165 10e3/ uL 150-45 0 Not Available [address], [place], [address], 06/27/2022 22:33:10 06/28/19 23 06/27/2022 CBC WITH PLATE LETS % neutrophils 79 % Not Available [address], [place], [address], 06/27/2022 22:33:10 06/28/19 23 06/27/2022 CBC WITH PLATE LETS % lymphocytes 13 % Not Available [address], [place], [address], 06/27/2022 22:33:10 06/28/19 23 06/27/2022 CBC WITH PLATE LETS % monocytes 6 % Not Available [address], [place], [address], 06/27/2022 22:33:10 06/28/19 23 06/27/2022 CBC WITH PLATE LETS % eosinophils 1 % Not Available [address], [place], [address], 06/27/2022 22:33:10 06/28/19 23 06/27/2022 CBC WITH PLATE LETS % basophils 0 % Not Available [address], [place], [address], 06/27/2022 22:33:10 06/28/19 23 06/27/2022 CBC WITH PLATE LETS % immature granulocytes 1 % Not Available [address], [place], [address], 06/27/2022 22:33:10 06/28/19 23 06/27/2022 CBC WITH PLATE LETS NRBCs per 100 WBC 0 /100 <1 Not Available [address], [place], [address], 06/27/2022 22:33:10 06/28/19 23 06/27/2022 CBC WITH PLATE LETS absolute neutrophils 5.8 10e3/ uL 1.6-8. 3 Not Available [address], [place], [address], 06/27/2022 22:33:10 06/28/19 23 06/27/2022 CBC WITH PLATE LETS absolute lymphocytes 1.0 10e3/ uL 0.8-5. 3 Not Available [address], [place], [address], 06/27/2022 22:33:10 06/28/19 23 06/27/2022 CBC WITH PLATE LETS absolute monocytes 0.4 10e3/ uL 0.0-1. 3 Not Available [address], [place], [address], 06/27/2022 22:33:10 06/28/19 23 06/27/2022 CBC WITH PLATE LETS absolute eosinophils 0.1 10e3/ uL 0.0-0. 7 Not Available [address], [place], [address], 06/27/2022 22:33:10 06/28/19 23 06/27/2022 CBC WITH PLATE LETS absolute basophils 0.0 10e3/ uL 0.0-0. 2 Not Available [address], [place], [address], 06/27/2022 22:33:10 06/28/19 23 06/27/2022 CBC WITH PLATE LETS absolute immature granulocytes 0.0 10e3/ uL <=0.4 Not Available [address], [place], [address], 06/27/2022 22:33:10 06/28/19 23 06/27/2022 CBC WITH PLATE LETS absolute NRBCs 0.0 10e3/ uL Not Available [address], [place], [address], 06/27/2022 22:33:10 06/28/19 23 06/27/2022 PROTE IN RANDO M URINE total protein urine mg/dL 10.1 mg/dL 1.0-14 .0 The refer ence range s have not been estab lishe d in urine prote in. The resul ts shoul d be integ rated into the clini jacobo bijal xt for inter preta tion. Not Available [address], [place], [address], 06/27/2022 22:33:11 06/28/19 23 06/27/2022 PROTE IN RANDO M URINE total protein urine mg/mg creat 0.11 mg/mg _cr 0.00-0 .20 Not Available [address], [place], [address], 06/27/2022 22:33:11 06/28/19 23 06/27/2022 PROTE IN RANDO M URINE creatinine urine mg/dL 90.8 mg/dL The refer ence range s have not been estab lishe d in urine creat inine . The resul ts shoul d be integ rated into the clini jacobo bijal xt for inter preta tion. Not Available [address], [place], [address], 06/27/2022 22:33:11 06/28/19 23 06/27/2022 ALT (DECLAN INE AMINO TRANS FERAS E) ALT 20 U/L 10-35 Not Available [address], [place], [address], 06/28/2022 00:14:20 06/28/19 23 06/27/2022 AST (ASPA RTATE AMINO TRANS ERASE ) AST 36 U/L 10-35 high Not Available [address], [place], [address], 06/28/2022 00:14:21 06/28/19 23 06/27/2022 CREAT ININE creatinine 0.68 mg/dL 0.51-0 .95 Not Available [address], [place], [address], 06/28/2022 00:14:21 06/28/19 23 06/27/2022 CREAT ININE GFR estimate >90 mL/mi n/1.7 3m2 >60 eGFR calcu lated using 2020 CKD-E PI equat ion. Not Available [address], [place], [address], 06/28/2022 00:14:21 07/05/19 23 07/04/2022 GROUP B STREP TOCOC CUS PCR WITH REFLE X TO CULTU RE AND SENSI TIVIT Y group B strep PCR Negati ve negati ve Presu med negat mauricio for Strep tococ cus agala ctiae (Grou p B Strep tococ cus) or the numbe r of organ isms may be below the limit of detec tion of the assay . The Cephe id Xpert GBS LB Assay , perfo rmed on the GeneX pert? ? Instr ument Syste ms, is a quali tativ e in vitro diagn ostic test desig rajendra to detec t Group B Strep tococ cus (GBS) DNA from enric hed vagin al/re ctal swab speci mens, using fully autom ated, real- time polym erase chain react ion (PCR) with fluor ogeni c detec tion of the ampli fied DNA. Xpert GBS LB Assay testi ng is indic ated as an aid in deter minin g GBS colon izati on statu s in antep artum women . This assay does not diagn ose or monit or treat ment for GBS infec tions . The Cephe id Xpert GBS LB Assay is inten ded for use in hospi sharon, refer ence or state labor atory setti ngs. The devic e is not inten ded for point -of-c are use. Not Available [address], [place], [address], 07/05/2022 22:49:21 07/05/19 23 07/04/2022 hemog lobin (Hb), finge rstic k, blood fingerstick hemoglobin 10.2 g/dL 12.0-1 5.0 Not Available [id number] le_[place] [address] [facility] [address], [place], [address], 07/04/2022 17:39:55 09/03/19 23 09/02/2022 TSH WITH REFLE X TO FREE T4 TSH 2.98 uIU/m L 0.30-4 .20 Not Available [facility] [address], [place], [address], 09/03/2022 15:07:36 09/03/19 23 09/02/2022 GYNEC OLOGI C CYTOL OGY (PAP SMEAR ) gynecologic cytology SEE RESULT S BELOW abnormal SPECI MEN SOURC E [place] Cervi x BKR LAB AP SOFTWARE SUPPORT REPRESENTATIVE INTER PRETA TION: Atypi jacobo squam ous cells of undet ermin ed signi fican ce (ASC- US) Elect chandan tobin cristóbal d by Aliya Coleman on 2022 at 3:41 PM Path repor t.com ments Imp Spec: [place] icola ou Test Limit ation s: Cervi jacobo cytol ogy is a scree christos test with limit ed sensi tivit y, and regul ar scree christos is criti jacobo for cance r preve ntion . Pap tests are prima rily effec tive for the diagn osis/ preve ntion of squam ous cell carci noma, not adeno carci noma or other cance rs. BKR LAB AP SOFTWARE SUPPORT REPRESENTATIVE ADEQU ACY: Satis facto ry for evalu ation , endoc ervic al/tr ansfo rmati on zone compo nent prese nt Path repor t.rel evant Hx Spec: post- partu m BKR LAB AP LMP: NONE BKR LAB AP HPV REFLE X: Yes regar dless of resul t BKR LAB AP PREVI OUS ABNOR MAL: No BKR LAB AP PREVI OUS ABNL DX: Neg/N eg hpv Path repor t.com ments Imp Spec: The techn ical compo nent of this testi ng was compl eted at [facility] Not Available [address], [place], [address], 09/08/2022 14:28:27 09/03/19 23 09/02/2022 HPV HIGH RISK TYPES DNA CERVI JACOBO other HR HPV Negati ve negati ve Not Available [address], [place], [address], 09/08/2022 14:28:43 09/03/19 23 09/02/2022 HPV HIGH RISK TYPES DNA CERVI JACOBO HPV16 DNA Negati ve negati ve Not Available [address], [place], [address], 09/08/2022 14:28:43 09/03/19 23 09/02/2022 HPV HIGH RISK TYPES DNA CERVI JACOBO HPV18 DNA Negati ve negati ve Not Available [facility] [address] [facility] [address], [place], [address], 09/08/2022 14:28:43 09/03/19 23 09/02/2022 HPV HIGH RISK TYPES DNA CERVI JACOBO final diagnosis See note below This patie nt's sampl e is negat mauricio for HPV DNA. This test was devel oped and its perfo rmanc e mackenzie cteri stics deter mined by the [facility] . It has not been clear ed or appro mina by the FDA. The labor atory is regul ated under CLIA as quali fied to perfo rm high- compl exity testi ng. This test is used for clini jacobo purpo ses. It shoul d not be regar ded as inves tigat ional or for resea rch. METHO DOLOG Y: The Stiven Dahiana 4800 syste m uses autom ated extra ction , simul taneo us ampli ficat ion of HPV (L1 regio n) and beta- globi n, follo wed by real time detec tion of fluor escen t label ed HPV and beta globi n using speci fic oligo nucle otide probe s. The test speci fical ly ident ifies types HPV 16 DNA and HPV 18 DNA while concu rrent ly detec ting the rest of the high risk types (31, 33, 35, 39, 45, 51, 52, 56, 58, 59, 66 or 68). COMME NTS: This test is not inten ded for use as a scree christos devic e for woman under age 30 with tiny l cervi jacobo cytol ogy. Resul ts shoul d be corre lated with cytol ogic and histo logic findi ngs. Close clini jacobo follo wup is recom maximilian d. Not Available [facility] [address] [facility] [address], [place], [address], 09/08/2022 14:28:43 09/03/1909/02/2022 hemog lobin (Hb), finge rstic k, blood fingerstick hemoglobin 12.4 g/dL 12.0-1 5.0 Not Available [id number] le_[place] [address] [facility] [address], [place], [address], 09/02/2022 15:28:31 05/28/19 23 05/27/2022 US, obste tric, bioph ysica l profi le No observ ation record ed. [place] Kristen [address], [place], [address], 05/30/2022 16:30:31 06/04/19 23 06/03/2022 US, obste tric, bioph ysica l profi le No observ ation record ed. ahuepfel Krist[address], [place], [address], 06/04/2022 14:19:07 06/10/19 23 06/09/2022 US, obste tric, follo w-up No observ ation record ed. [email or web address] [address], [place], [address], 06/09/2022 14:55:59 06/19/19 23 06/18/2022 US, obste tric, bioph ysica l profi le No observ ation record ed. [place] Krist[address], [place], [address], 06/20/2022 15:04:59 06/28/19 23 06/27/2022 US, obste tric, bioph ysica l profi le No observ ation record ed. [email or web address] [address], [place], [address], 07/08/2022 13:24:38 07/05/19 23 07/04/2022 US, obste tric, bioph ysica l profi le No observ ation record ed. aalmdanora Koenige [address], [place], [address], 07/06/2022 21:19:31 07/10/1907/04/2022 non-s tress test No observ ation [facility] ed. [facility] [email or web address]_cxesiz a le_[address], [place], [address], 07/10/2022 10:19:28 07/11/1907/04/2022 non-s tress test No observ ation record ed. [facility] Go691_oroyea a [address], [place], [address], 07/10/2022 10:55:24 Result Notes None recorded. Problems Name Problem SNOMED Code Status Onset Date Resolution Date Notes Provider Name and Address Organization Details Recorded Time Irritabl e bowel syndrome 58400304 Active Bronwyn Adam (TERMED) null, [place] - [facility] 2 14:18:43 Hyperten sive disorder 33008012 Active Bronwyn Adam (TERMED) [place] [facility] 2 14:18:57 Pregnanc y 24712017 Completed 202107/15/2022 Lynn Greenfiel d null, [place] [facility] 3 14:38:17 Advanced maternal age 297294492 Completed normal MT21 Lynn Greenfiel d [place] [facility] 3 14:38:08 Administ ration of influenz a vaccine Completed 2021 Lynn Greenfiel d [place] [facility] 3 14:38:08 Nausea and vomiting 12687763 Completed 2022 Lynn Greenfiel d [place] [facility] 3 14:38:08 Nausea and vomiting 11626012 Active 2022 Lynn Greenfiel d [place] [facility] 3 14:38:08 Benign essentia l hyperten asha complica ting pregnanc y, childbir th and the puerperi - not delivere d 555501987 Completed CHTN vs GHTN. BP elevated starting at 20 wks. Labetalol 200 mg BID. Lynn booth null, [facility] ACTUARIAL CLERK 3 14:38:08 Problem Notes None recorded. Procedures Surgical History Date Name Laterality Status Provider Name and Address Organization Details Recorded Time 09/03/19 23 Date of Last Pap Smear completed Chrissy Monroe [facility] ACTUARIAL CLERK 09/08/2022 14:41:40 10/09/19 19 dilation and curettage completed Jessica Kaplan [facility] ACTUARIAL CLERK 04/21/2022 08:33:39 07/22/19 17 Date of Last Mammogram completed Michell Wong(TERM) [facility] ACTUARIAL CLERK 10/24/2020 09:14:27 tonsillectomy completed Not Available [facility] 10/17/2019 01:04:42 tooth extraction completed Not Available [facility] 10/17/2019 01:04:42 repair [place] [address] [facility], [place], [address], [facility] ACTUARIAL CLERK 12/22/2021 09:15:59 Imaging Results None recorded. Procedure Notes None recorded. Medical Equipment None Reported. Allergies No known drug allergies Medications Name Sig Start Date Stop Date Status Note LastModified by Organization Details LastModified Time labetalol 200 mg tablet TAKE 1 TABLET BY MOUTH TWICE A DAY 2022 active Not Available Not Available Not Avai lable sertraline 100 mg tablet 1 tablet every day by oral route. active Not Available Not Available No t Available hydroxyzine HCl 50 mg tablet TAKE 1 TABLET BY MOUTH TWICE A DAY NEEDED FOR 14 DAYS active Not Available Not Available No t Available prochlorper azine maleate 10 mg tablet active Not Available Not Available No t Available metoclopram sudhir 5 mg tablet active Not Available Not Available Not Available cephalexin 500 mg capsule TAKE 1 CAPSULE BY MOUTH TWICE DAILY FOR 10 DAYS 12/17 completed Not Available Not Available Not Available omeprazole 20 mg capsule,del ayed release TAKE 1 CAPSULE BY MOUTH DAILY FOR 14 DAYS. TAKE 1 HOUR BEFORE A MEAL. 12/17 completed Not Available Not Available Not Available labetalol 100 mg tablet TAKE 1 TABLET BY MOUTH TWICE A DAY active Not Available Not Available No t Available ondansetron 4 mg disintegrat ing tablet active Not Available Not Available N ot Available fluticasone propionate 50 mcg/actuati on nasal spray,suspe nsion SPRAY 2 SPRAYS INTO EACH NOSTRIL EVERY DAY DIRECTED 12/17 completed Not Available Not Available Not Available dicyclomine 10 mg capsule TAKE 1 CAPSULE BY MOUTH EVERYDAY AT BEDTIME 12/17 completed Not Available Not Available Not Available Vitamin active Not Available Not Available Not Available Tri-Lo-Malika ia 0.18 mg/0.215 mg/0.25 mg-0.025 mg tablet TAKE 1 TABLET BY MOUTH EVERY DAY 12/17 completed Not Available Not Available Not Available Vitals Date Recorded Body weight Systolic blood pressure Diastolic blood pressure Provider Name and Address Organization Details Last Updated DateTime 06/27/2022 13272.0663 7 g 126 mm[Hg] 86 mm[Hg] Bronwyn Adam (TERMED) [facility] ACTUARIAL CLERK 06/27/2022 15:21:04 Date Recorded Body weight Systolic blood pressure Diastolic blood pressure Provider Name and Address Organization Details Last Updated DateTime 07/04/2022 89065.8434 8 g 118 mm[Hg] 80 mm[Hg] Bronwyn Adam (TERMED) [facility] ACTUARIAL CLERK 07/04/2022 16:38:27 Date Recorded Body height Body mass index (BMI) Body weight Systolic blood pressure Diastolic blood pressure Provider Name and Address Organization Details Last Updated DateTime 07/18/2022 175.26 cm 28.2 kg/m2 66324.14 g 110 mm[Hg] 70 mm[Hg] Indy Wrighta (TERMED) [facility] ACTUARIAL CLERK 12:04:34 Date Recorded Body height Body mass index (BMI) Body weight Systolic blood pressure Diastolic blood pressure Provider Name and Address Organization Details Last Updated DateTime 09/02/2022 175.26 cm 28.5 kg/m2 41235.33 g 124 mm[Hg] 86 mm[Hg] Bronwyn Adam (TERMED) [facility] ACTUARIAL CLERK 15:27:12 Social History Question Answer Notes LastModified by Organizat ion Details LastModified Time Tobacco Smoking Status Never Smoker Jessica Kaplan [facility] ACTUARIAL CLERK 04/21/2022 08:33:21 If You Are , What Was Your Level Of Alcohol Consumption Prior To ? Moderate [email or web address] Information not available 09/02/2022 What Is Your Level Of Caffeine Consumption? None [email or web address] Information not available 09/02/2022 Which Illicit Or Recreational Drugs Have You Used? Denies Illicit Substance Abuse [email or web address] Information not available 09/02/2022 Children's Names/ Bari-05/31/[birth year] . Elviaghassan- Information not available 12/17/2021 [facility] Informat ion not available 12/17/2021 History Of Domestic Violence No Denies All Domestic Violence [email or web address] Information not available 10/17/2019 Spouse/Partners Name Itz Roe Information not available 12/17/2021 What Is Your Relationship Status? Information not available 12/17/2021 Are You Sexually Active? Yes Information not available 12/17/2021 Sex: Unknown Functional Status Question Answer Note LastModified by Organizat ion Details LastModified Time Do you use any illicit or recreational drugs? No Information not available 12/17/2021 What is your level of alcohol consumption? 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 Occasional Information not available 12/17/2021 Mental Status None recorded. Family History Relationship Description Onset Age of this Age Resolved Age Notes LastModified by Organization Details LastModified Time Paternal Grandmother Disorder of thyroid gland Thyroi d Diseas e Not available 10/17/2019 01:08:00 Mother Benign neoplasm of colon Colon Polyp, Benign [email or web address] Not available 09/02/2022 15:05:27 Mother Family history of mental disorder Depres asha [email or web address] Not available 09/02/2022 15:05:27 Mother Hyperlipidem ia High Choles terol / Hyperl ipidem ia [email or web address] Not available 09/02/2022 15:05:27 Maternal Grandmother Disorder of thyroid gland Thyroi d Diseas e Not available 10/17/2019 01:08:00 Paternal Grandfather Hyperlipidem ia High Choles terol / Hyperl ipidem ia [email or web address] Not available 09/02/2022 15:05:27 Sister Disorder of thyroid gland Thyroi d Diseas e Not available 10/17/2019 01:08:00 Mother Disorder of thyroid gland Thyroi d Diseas e Not available 10/17/2019 01:08:00 Maternal Grandfather Family history of diabetes mellitus Diabet es [email or web address] Not available 09/02/2022 15:05:27 Maternal Grandmother Hyperlipidem ia High Choles terol / Hyperl ipidem ia Not available 09/02/2022 15:05:27 Medical History Condition Response Psych- Depression Y Endocrinology- Thyroid Problems Y Psych- Anxiety Disorder Y Hematology- Anemia N GI- Irritable Bowel Syndrome Y Gynecological History Statement/Question Response Sexually Active Y History of Abnormal PAP N HPV Test Negative Date of Last Mammogram 07/21/2016 Date of LMP 10/16/2021 History of Cervical Dysplasia N Date of Last Pap Smear 09/02/2022 Date of Last Diabetes Screening 08/07/19 19 Date of Last Cholesterol Screening 08/06 Obstetrics History GPAL:G 5 P 2 1 2 3 Type Value Multiple Births 0 Full Term 2 Induced 0 Spontaneous 2 Premature 1 Living 3 Ectopics 0 Total 5 Immunizations Vaccine Type Date Status Note Provider Nam e and Address Organization Details Recorded Time Tdap 8 completed Not Available [facility] 10/17/2019 01:08:48 Tdap 8 completed Not Available [facility] 09/02/2022 15:06:12 Tdap 0 completed Not Available [facility] 09/02/2022 15:06:12 Influenza, split virus, trivalent, PF 7 completed Not Available [facility] 10/17/2019 01:08:48 Influenza, split virus, trivalent, preservative 9 completed Not Available [facility] 09/02/2022 15:06:12 Influenza, split virus, quadrivalent, PF 2 [place] [address], [place], [address], [facility] [employer] 12/17/2021 14:27:28 Influenza, split virus, quadrivalent, PF 8 [place] [address], [place], [address], [place] [facility] [employer] 12/17/2021 14:27:28 HPV, quadrivalent 7 [place] [address], [place], [address], [place] [facility] 12/17/2021 14:27:28 Influenza, split virus, quadrivalent, PF 0 [place] [address], [place], [address], [facility] [employer] 12/17/2021 14:27:28 COVID-19, mRNA, LNP-S, PF, 30 mcg/0.3 mL dose 1 [place] [address], [place], [address], [place] [facility] [employer] 12/17/2021 14:27:28 Influenza, split virus, quadrivalent, PF 4 [place] [address], [place], [address], [place] [facility] 12/17/2021 14:27:28 HPV, quadrivalent 9 [place] [address], [place], [address], [place] [facility] [employer] 12/17/2021 14:27:28 Influenza, split virus, quadrivalent, PF 6 [place] [address], [place], [address], [place] [facility] 12/17/2021 14:27:28 meningococcal MPSV4 4 [place] [address], [place], [address], [place] [facility] [employer] 12/17/2021 14:27:28 COVID-19, mRNA, LNP-S, PF, 30 mcg/0.3 mL dose 2 [place] [address], [place], [address], [place] [facility] [employer] 12/17/2021 14:27:28 Tdap 9 [place] [address] [address], [place], [address], [place] [facility] 12/17/2021 14:27:28 COVID-19, mRNA, LNP-S, PF, 30 mcg/0.3 mL dose 1 [place] [address], [place], [address], [place] [facility] 12/17/2021 14:27:28 Influenza, MDCK, quadrivalent, PF 2 [place] [address] [address], [place], [address], [place] [facility] [employer] 01/12/2022 12:32:03 Tdap 3 [place] [address], [place], [address], [place] [facility] [employer] 06/20/2022 13:33:32 Past Encounters Encounter ID Performer Location Encounter Start Date Encounter Closed Date Diagnosis/Indication Diagnosis SNOMED-CT Code Diagnosis ICD10 Code Diagnosis Note [id number] TODD RICH MD [id number] [address] ,[address] [place] [address] 12/17/2021 13:35:25 12/17/2021 14:29:57 Finding of viability of 584031728 O36.8990 Gestation period, 7 weeks 69615284 Z3A.01 [id number] CHARLENE DAWSON MD [id number] ,[address] [place] [address] 12/17/2021 14:00:34 12/22/2021 22:50:01 Intrauterine 73870402 Z34.81 [id number] TODD RICH MD [id number] ,[address] [place] [address] 01/03/2022 12:11:24 01/03/2022 13:52:21 Routine care 228338791 Z34.91 Gestation period, 10 weeks 15847253 Z3A.10 [id number] CHARLENE DAWSON MD [id number] [address] ,[address] [place] [address] 01/03/2022 12:48:32 01/03/2022 15:12:43 Nausea and vomiting 57480282 R11.2 Gestation period, 10 weeks 65630339 Z3A.10 [id number] CHARLENE DAWSON MD [address] ,[facility] [address] [place] [address] 01/10/2022 13:56:51 01/14/2022 12:05:55 Administration of influenza vaccine 16267090 Z23 Gestation period, 11 weeks 55871444 Z3A.11 Advanced m atelashonl age 918393062 O09.440 [id number] TYLER RENTERIA MD [id number] [address] ,[address] [place] [address] 01/10/2022 14:30:02 01/10/2022 14:44:35 heart sounds absent 497142355 O36.8399 Gestation period, 11 weeks 84270554 Z3A.11 [id number] CHARLENE DAWSON MD [id number]_YME [address] ,[address] [place] [address] 02/12/2022 09:08:33 02/12/2022 09:34:00 Gestation period, 15 weeks 6881593 Z3A.15 Chromosome abnormality screening 915461846 Z13.79 [id number] DUANE SHIELDS, [address] ,[address] [place] [address] 03/11/2022 14:22:51 03/11/2022 15:03:37 Nausea and vomiting 65509914 R11.2 [id number] TODD RICH MD [id number] [address] ,[address] [place] [place] [address] 03/14/2022 14:23:20 03/14/2022 16:12:05 screening 095488051 Z36.3 Gestation period, 20 weeks 15923870 Z3A.20 [id number] CHARLENE DAWSON MD [id number] [address] ,[address] [place] [address] 03/14/2022 15:29:30 03/17/2022 13:00:35 Increased blood pressure 88328030 R03.0 Gestation period, 20 weeks 19346648 Z3A.20 [id number] TYLER RENTERIA MD [id number] [address] ,[address] [place] [address] 04/11/2022 10:23:00 04/11/2022 10:57:12 screening 530161177 Z36.3 Gestation period, 24 weeks 463496217 Z3A.24 [id number] CHARLENE DAWSON MD [id number] [address] ,[address] [place] [address] 04/11/2022 10:55:37 04/14/2022 09:38:33 Increased blood pressure 48300627 R03.0 Gestation period, 24 weeks 807153135 Z3A.24 [id number] CHARLENE DAWSON MD [id number] [address] ,[address] [place] [address] 04/16/2022 12:07:41 04/16/2022 13:18:38 -induced hypertension 36522877 O13.9 Gestation period, 24 weeks 095500294 Z3A.24 [id number] CHARLENE DAWSON MD [address] ,[address] [place] [address] 04/21/2022 10:15:39 04/21/2022 11:07:07 -induced hypertension 52094478 O13.9 Gestation period, 25 weeks 87009148 Z3A.25 [id number] LY RUIZ MD [id number] ,[address] [place] [address] 04/21/2022 09:41:57 04/21/2022 10:44:19 -induced hypertension 35521892 O13.9 Gestation period, 25 weeks 49477523 Z3A.25 [id number] CHARLENE DAWSON MD OR940_PIA [address] ,[address] [place] [address] 04/29/2022 14:50:38 04/29/2022 15:51:09 Gestation period, 26 weeks 06752181 Z3A.26 Chronic hy pertension in obstetric context 5286362 O16.9 [id number] MD RADHA CASTELLANOS004_[facility] ,[address] [place] [address] 05/07/2022 12:03:01 05/07/2022 13:08:22 Gestation period, 27 weeks 02964341 Z3A.27 [id number] TYLER RENTERIA MD [id number]_PTQ [address] ,[address] [place] [address] 05/14/2022 09:38:20 05/14/2022 10:14:44 Hypertensive disorder 93663779 I10 Gestation period, 28 weeks 94687331 Z3A.28 [id number] CHARLENE DAWSON MD [id number]_YDX [address] ,[address] [place] [address] 05/14/2022 10:10:48 05/14/2022 14:08:17 screening 667892346 Z36.89 Gestation period, 28 weeks 26696546 Z3A.28 [id number] TYLER RENTERIA MD [id number]_WBS [address] ,[facility] [address] [place] [address] 05/27/2022 13:41:09 05/27/2022 14:13:55 Benign essential hypertension complicating , childbirth and the puerperium - not delivered 930246728 O10.019 Small for gestational age fetus 122567954 O36.5999 Gestation period, 30 weeks 64315929 Z3A.30 [id number] CHARLENE DAWSON MD [id number]_RDB [address] ,[address] [place] [address] 05/27/2022 15:37:19 05/28/2022 15:14:11 Gestation period, 30 weeks 56783813 Z3A.30 [id number] TODD RICH MD [id number]_LWD [address] ,[address] [place] [address] 06/03/2022 11:59:22 06/03/2022 14:10:39 Hypertensive disorder 79020631 I10 Gestation period, 31 weeks 65968246 Z3A.31 [id number] DUANE SHIELDS, [id number]_XZT [address] ,[address] [place] [address] 06/03/2022 14:19:17 06/03/2022 15:03:39 Dysuria 90059754 R30.0 [id number] LY RUIZ MD [address] ,[address] [place] [address] 06/09/2022 08:59:47 06/09/2022 09:24:52 Benign essential hypertension complicating , childbirth and the puerperium - not delivered 884646143 O10.019 Small for gestational age fetus 782423245 O36.5999 Gestation period, 32 weeks 1491830 Z3A.32 [id number] CHARLENE DAWSON MD [address] ,[address] [place] [address] 06/09/2022 09:21:35 06/09/2022 10:48:59 Gestation period, 32 weeks 6111433 Z3A.32 [id number] TYLER RENTERIA MD [address] ,[address] [place] [place] [address] 06/18/2022 16:06:46 06/20/2022 16:16:31 Hypertensive disorder 90290362 I10 Gestation period, 33 weeks 26700105 Z3A.33 [id number] CHARLENE DAWSON MD [address] ,[address] [place] [place] [address] 06/18/2022 16:42:44 06/20/2022 14:02:10 Gestation period, 30 weeks 90879552 Z3A.30 [id number] HOMA PENDLETON MD [address] ,[address] [place] [address] 06/27/2022 12:09:44 06/27/2022 12:42:39 Hypertensive disorder 40146823 I10 Gestation period, 35 weeks 80908327 Z3A.35 [id number] CHARLENE DAWSON MD [id number]_GWF [address] ,[address] [place] [address] 06/27/2022 15:05:25 06/30/2022 08:42:36 Chronic hypertension in obstetric context 5932437 O16.9 Gestation period, 35 weeks 05452890 Z3A.35 [id number] TYLER RENTERIA MD [address] ,[address] [place] [address] 07/04/2022 15:29:22 07/04/2022 16:41:38 Hypertensive disorder 41907576 I10 Gestation period, 36 weeks 03340641 Z3A.36 [id number] CHARLENE DAWSON MD [id number]_INM [address] ,[facility] [address] [place] [address] 07/04/2022 16:16:14 07/08/2022 10:00:33 Gestation period, 36 weeks 19462795 Z3A.36 screening 2437 99294 Z36.89 [id number] CHARLENE DAWSON MD YR137_NVA [address] ,[facility] [address] [place] [address] 07/18/2022 12:00:44 07/21/2022 09:47:35 Pre-eclampsia or eclampsia with pre-existing hypertension - delivered 204085985 O10.919 Discussed BP today. Recommend decreasing labetalol to 100 mg PO BID. Keep checking BPs at home. Patient to update me in 1 week with BPs on lower dose or sooner if they are worsening. [id number] CHARLENE DAWSON MD [id number]_AGH [address] ,[facility] [address] [place] [address] 09/02/2022 14:59:17 09/17/2022 14:15:24 state, 6 weeks 85794696 Z39.2 Night sweats 84094895 R6 1 Screening for malignant neoplasm of cervix 309738450 Z12.4 -induced hypertension 7714995869 9100 O13.9 Discussed BP - borderline today but has been high at home. Recommend restarting labetalol 100 mg PO BID and seeing PCP for further evaluation and treatment of BP. She agrees. Health Concerns Section Related Observation LastModified by Organization Detai ls LastModified Time None Recorded Concern Status LastModified by Organization Details LastModified Time None Recorded Advance Directives Directive None Recorded Payers Insurance Date Sequence Insurance Name Policy Number Policy Mata Covered Member ID Mata Member ID Guarantor Name 10/22/2022 1 [employer] - [employer] (O) Dania M Blazer [id number] Dania M Blazer 10/16/2022 1 [employer] [facility] [id number] Dania M Blazer [id number] Dania M Blazer 10/22/2022 2 [employer] - [employer] Dania M Blazer [id number] Dania M Blazer 09/01/2022 1 [facility] [id number] Dania M Blazer [id number] Dania M Blazer 03/14/2022 SLIDING FEE SCHEDULE - DISCOUNT Dania M Blazer 03/11/2022 1 *SELF PAY* Sergio Roe Notes Date Note Type Note Provider Name and Address Organization Details Recorded Time 07/18/2022 text/html ([facility])Reported bypatient.Reason for visit:blood pressure f/u Delivering Provider:Nirmal Date of Delivery:07/08/2022 Type of Delivery:spontaneo us vaginal Gestational Age at Delivery:36 weeks Antepartum Problems:preeclamp yrn; CHTN with superimposed pre-eclampsia Labor/Delivery:sec ond degree laceration NICU Stay for Baby:no Breast or Bottle Feeding:breastfeed ing [place] Since Delivery:noNotes:D oing well. States mood is okay. Getting some sleep. Bleeding seems normal. BPs at home mostly 100-120/70s. Occasionally gets a little higher. No AUGUSTINE, visual changes [place] [address] [facility],[address], [place], [address], [place] - [facility] [employer] [employer] 07/19/2022 21:05:46 09/02/2022 text/html ([facility])Reported bypatient.Reason for visit:Routine 6 week Delivering Provider:Nirmal Date of Delivery:07/08/2022 Type of Delivery:spontaneo us vaginal Gestational Age at Delivery:36 weeks Antepartum Problems:preeclamp yrn; CHTN with superimposed pre-eclampsia Labor/Delivery:sec ond degree laceration NICU Stay for Baby:no Breast or Bottle Feeding:breastfeed ing [place] Since Delivery:no Problems:HTN Depression:patient has some anxiety/depression but states she is currently doing well on sertraline Last Pap Smear:date: 07/21/2018; result normal and negative HPVNotes:Stopped labetalol 100 mg PO BID about 1 week ago as she ran out. BPs at home have been running 120-150/80-90. Overall feeling well. Has been having some [place] [address], [place], [address], [facility] - [facility] [employer] 09/12/2022 18:41:00 OBGyn Episode Ob Episode Information Episode Created Date Number of Fetuses Patient Bloodtype Patient rh Status Prepregnancy Weight lbs Domestic Partner Domestic Partner Phone Father Name Arborer Status 12/23/19 22 1 CLOSED Fetus Data First Name Last Name Admitted to NICU Weight (g) Sex Living Outcome Pediatric Complications Fetus ID Race Codes Race Delivery Type 3968.93 M Full Term 34338 Ankur Calculation Initial Ankur Date Initial Exam Date Initial Exam Provider Initial Ultrasound Date Last Menstrual Period Date Ultra Sound Weeks Gestation 0 Eighteen To Twenty Week Ankur Update Ultra Sound Date Fundal Height At Umbil Quickening Date Ultra Sound Latest Weeks Gestation Final Ankur Confirmed By Final Ankur Confirmed Date Final Ankur Date Ultra Sound Latest Days Gestation 0 0 Menstrual History Last Menstrual Date Menses Monthly On Bcp Conception Prior Menses Frequency Hcg Plus Date Menarche Onset Age Delivery Information Delivery Date Delivery Type Labor Anesthesia Weeks Gestation Incision Type Labor Labor Length Hrs Delivered By Post Complications Tubal Sterilization Discharge Date Comments 8 Regional-Ep idural 40 false 4 Swigert Discharge Information Feeding Method Contraceptive Method Maternal HG B and HCT Levels Ob Episode Information Episode Created Date Number of Fetuses Patient Bloodtype Patient rh Status Prepregnancy Weight lbs Domestic Partner Domestic Partner Phone Father Name Arborer Status 12/18/19 22 1 A Positive 185 CLOSED Fetus Data First Name Last Name Admitted to NICU Weight (g) Sex Living Outcome Pediatric Complications Fetus ID Race Codes Race Delivery Type F [place] [id number] Problems Problem Notes Dated by 7 week U/S Problem Name Start Date End Date Resolution Snomed Code Not e Nausea and vomiting 03/11/2022 [id number] Benign essential hypertension complicating , childbirth and the puerperium - not delivered 774910184 CHTN vs GHTN. B P elevated starting at 20 wks. Labetalol 200 mg BID. Advanced maternal age 302173930 normal MT21 Administration of influenza vaccine 01/10/2022 [id number] Ankur Calculation Initial Ankur Date Initial Exam Date Initial Exam Provider Initial Ultrasound Date Last Menstrual Period Date Ultra Sound Weeks Gestation 08/01/2022 12/17/2021 12/17/2021 10/16/2021 7 Eighteen To Twenty Week Ankur Update Ultra Sound Date Fundal Height At Umbil Quickening Date Ultra Sound Latest Weeks Gestation Final Ankur Confirmed By Final Ankur Confirmed Date Final Ankur Date Ultra Sound Latest Days Gestation 0 ameschke 12/17/2021 08/02/19 23 0 Pre- Flowsheet Flowsheet Date 12/17/2021 Mcmahon Score Blood Edema Fundus Height Fundus Units Glucose Ketones Leukocytes Nitrite Labor Signs Protein Cervic Dilation Cervic Effacement Cervic Station Type Weight in lbs Pre/Post Dialysis Refused BP Diastolic BP Location Tested BP Systolic BP Type Fetus Heart Rate Present Fetus Movement Comments Flowsheet Date 12/17/2021 Mcmahon Score Blood Edema Fundus Height Fundus Units Glucose Ketones Leukocytes Nitrite Labor Signs Protein Cervic Dilation Cervic Effacement Cervic Station none none none neg 0cm 0% -4 Type Weight in lbs Pre/Post Dialysis Refused Weight 185.089423772825 BP Diastolic BP Location Tested BP Systolic BP Type 80 R arm 120 sitting Fetus Heart Rate Present Fetus Movement Comments NOB. Doing okay. Some nausea and occasional vomiting. Spotting x 1 2 weeks ago. No pain. Discussed U/S today - not c/w with uncertain LMP dating - will use U/S EDC. Will repeat U/S with next visit due to h/o SAB x 2 and discrepancy with dates. Discussed NOB packet. Discussed genetic screening. Will consider. MT21 is covered. Recommend f/u with PCP for LFTs as planned next week. F/U in 2 weeks. Planned flu shot today but not given. Will do next visit. Flowsheet Date 01/03/2022 Mcmahon Score Blood Edema Fundus Height Fundus Units Glucose Ketones Leukocytes Nitrite Labor Signs Protein Cervic Dilation Cervic Effacement Cervic Station Type Weight in lbs Pre/Post Dialysis Refused BP Diastolic BP Location Tested BP Systolic BP Type Fetus Heart Rate Present Fetus Movement Comments Flowsheet Date 01/03/2022 Mcmahon Score Blood Edema Fundus Height Fundus Units Glucose Ketones Leukocytes Nitrite Labor Signs Protein Cervic Dilation Cervic Effacement Cervic Station none none Bleeding neg Type Weight in lbs Pre/Post Dialysis Refused Weight 187.46172675684 BP Diastolic BP Location Tested BP Systolic BP Type 82 122 Fetus Heart Rate Present A 172 Fetus Movement A No Comments Patient presents for f/u via [employer] U/S. Reports some bleeding last week. Was very worried miscarriage was going to happen and reports getting drunk. Has not had any EtOH since then. No bleeding now. Discussed U/S today - 10 weeks by previous U/S at 7 weeks. CRL 9+5 weeks, FHHR 172/min. No YOCASTA (was small one last U/S). Yolk sac slightly enlarged. Gest sac normal. Discussed all. Also having n/v with vomitting multiple times daily. Feels like she is able to stay hydrated fairly well. Discussed unisom/B6. Requests Rx for zofran as well as she has to travel for work next week. Discussed risks and benefits of zofran. rx sent - will use if needed. Desires MT21 - will RTC next week for this. Call with concerns. Flowsheet Date 01/10/2022 Mcmahon Score Blood Edema Fundus Height Fundus Units Glucose Ketones Leukocytes Nitrite Labor Signs Protein Cervic Dilation Cervic Effacement Cervic Station none none neg Type Weight in lbs Pre/Post Dialysis Refused Weight 189.476108623142 BP Diastolic BP Location Tested BP Systolic BP Type 72 R arm 118 sitting Fetus Heart Rate Present Fetus Movement Comments Flu shot given. Maternity 21 Drawn.PS Patient doing well. Nausea has been better. Trip was fine. No pain or VB. MT 21 today. Discussed and also wants carrier screening today. F/U at 16 weeks (MSAFP then) and 20 weeks for anatomy U/S. Unable to hear FHTs today - U/S done which showed + cardiac activity. Patient reassured. F/U in 5 weeks. Flu shot today. Flowsheet Date 01/10/2022 Mcmahon Score Blood Edema Fundus Height Fundus Units Glucose Ketones Leukocytes Nitrite Labor Signs Protein Cervic Dilation Cervic Effacement Cervic Station Type Weight in lbs Pre/Post Dialysis Refused BP Diastolic BP Location Tested BP Systolic BP Type Fetus Heart Rate Present Fetus Movement Comments Flowsheet Date 02/12/2022 Mcmahon Score Blood Edema Fundus Height Fundus Units Glucose Ketones Leukocytes Nitrite Labor Signs Protein Cervic Dilation Cervic Effacement Cervic Station none none none neg Type Weight in lbs Pre/Post Dialysis Refused Weight 194.036021258869 BP Diastolic BP Location Tested BP Systolic BP Type 80 R arm 124 sitting Fetus Heart Rate Present A 150 Fetus Movement A No Comments No VB or LOF. MSAFP today. W as sick last week - better now. Worried something is wrong with baby because she has felt a lot worse this than her first 2 (more N/V, fatigue). Discussed each is different and these are very normal symptoms. Schedule anatomy U/S. F/U at 20 weeks. Flowsheet Date 03/11/2022 Mcmahon Score Blood Edema Fundus Height Fundus Units Glucose Ketones Leukocytes Nitrite Labor Signs Protein Cervic Dilation Cervic Effacement Cervic Station Type Weight in lbs Pre/Post Dialysis Refused BP Diastolic BP Location Tested BP Systolic BP Type Fetus Heart Rate Present Fetus Movement A Yes Comments Telehealth visit. Having mor e nausea, some vomiting, which is causing her to feel more depressed and anxious (able to take zoloft still). discussed nutrition for mom and baby. added Reglan and refilled Zofran. US for merry on thursday. LAYLA Flowsheet Date 03/14/2022 Mcmaohn Score Blood Edema Fundus Height Fundus Units Glucose Ketones Leukocytes Nitrite Labor Signs Protein Cervic Dilation Cervic Effacement Cervic Station Type Weight in lbs Pre/Post Dialysis Refused BP Diastolic BP Location Tested BP Systolic BP Type Fetus Heart Rate Present Fetus Movement Comments Flowsheet Date 03/14/2022 Mcmahon Score Blood Edema Fundus Height Fundus Units Glucose Ketones Leukocytes Nitrite Labor Signs Protein Cervic Dilation Cervic Effacement Cervic Station none none none trace Type Weight in lbs Pre/Post Dialysis Refused Weight 191.058220015965 BP Diastolic BP Location Tested BP Systolic BP Type 92 R arm 138 sitting Fetus Heart Rate Present A 140 Fetus Movement A No Comments Reglan made her feel weird - she did not take again. Continues to feel poorly - discussed. No pain or VB. No definite FM yet. Discussed elevated BP today - will do labs for baseline and continue to monitor. Anatomy U/S - S=D, anterior placenta. Cervix 3.5 cm, normal fluid. Anatomy normal except bladder and spine not well seen. Plan to repeat in 4 weeks. Flowsheet Date 04/11/2022 Mcmahon Score Blood Edema Fundus Height Fundus Units Glucose Ketones Leukocytes Nitrite Labor Signs Protein Cervic Dilation Cervic Effacement Cervic Station Type Weight in lbs Pre/Post Dialysis Refused BP Diastolic BP Location Tested BP Systolic BP Type Fetus Heart Rate Present Fetus Movement Comments Flowsheet Date 04/11/2022 Mcmahon Score Blood Edema Fundus Height Fundus Units Glucose Ketones Leukocytes Nitrite Labor Signs Protein Cervic Dilation Cervic Effacement Cervic Station none 24 cm none none trace Type Weight in lbs Pre/Post Dialysis Refused Weight 193.46622981650 BP Diastolic BP Location Tested BP Systolic BP Type 98 R arm 142 sitting 100 144 Fetus Heart Rate Present A 140 Fetus Movement A Yes Comments Gct Instructions given today . Feels well. No AUGUSTINE, visual change or RUQ pain. Feeling better. + FM. No pain or VB. Discussed BP. Only h/o elevated BPs was PP after 1st baby, mild elevation, no treatment, normal labs. Quickly returned to normal. Recommend stat labs today - will call at end of day to discuss next steps. Discussed CHTN, GHTN and pre-e. ADDENDUM: labs returned with elevated AST (84). This was a little elevated when labs checked at 20 weeks also (was 54 then). Rest normal, p/c ratio 0.21 (was 0.18 at 20 weeks). Unclear significance of elevated AST but with new elevated BP and this elevated AST, recommend she present to L&D for BPs, labs and observation. Discussed concern if developing pre-e at 24 weeks. Patient concerned, worried but also stating she isn't sure she can come to L&D tonight. Reviewed my concerns and reasons for coming in. She will d/w her . Flowsheet Date 04/12/2022 Mcmahon Score Blood Edema Fundus Height Fundus Units Glucose Ketones Leukocytes Nitrite Labor Signs Protein Cervic Dilation Cervic Effacement Cervic Station Type Weight in lbs Pre/Post Dialysis Refused BP Diastolic BP Location Tested BP Systolic BP Type Fetus Heart Rate Present Fetus Movement Comments Patient presented to [facility] on Monday 05/01 for above evaluation. Initial blood pressures were mildly elevated (patient visibly very anxious per RN in attendance) but after period of observation, the patient was normotensive. Laboratory assessment showed an ALT of 29 AST of 57 (actually down from 84 yesterday). Platelets 194,000 hemoglobin 12.8. Serum creatinine 0.72. Last blood pressures were 109/73 and 122/85. Patient discharged with a prescription for hydroxyzine to use as needed for anxiety. I recommend a follow-up visit in the office the week of 04/14/2022. Flowsheet Date 04/16/2022 Mcmahon Score Blood Edema Fundus Height Fundus Units Glucose Ketones Leukocytes Nitrite Labor Signs Protein Cervic Dilation Cervic Effacement Cervic Station none 24 cm none none neg Type Weight in lbs Pre/Post Dialysis Refused Weight 199.729834394905 BP Diastolic BP Location Tested BP Systolic BP Type 102 R arm 156 sitting 104 152 Fetus Heart Rate Present A 150 Fetus Movement A Yes Comments Gct Instructions given today .PS. Patient not feeling well today - very anxious. No AUGUSTINE, visual changes or RUQ pain. Active baby. No ctx, VB or LOF. Discussed BP today - at this point GHTN vs CHTN. Recommend starting labetalol 200 mg BID today. Will monitor BPs at home and f/u early next week for BP check. Call with AUGUSTINE, visual changes, RUQ pain. Will do labs today. Plan growth U/S q 4 weeks (will schedule with next visit) and BPPs at 32 weeks. All questions answered. F/U next week. Flowsheet Date 04/17/2022 Mcmahon Score Blood Edema Fundus Height Fundus Units Glucose Ketones Leukocytes Nitrite Labor Signs Protein Cervic Dilation Cervic Effacement Cervic Station Type Weight in lbs Pre/Post Dialysis Refused BP Diastolic BP Location Tested BP Systolic BP Type Fetus Heart Rate Present Fetus Movement Comments NOT a visit. PreE labs revie wed, all WNL except AST of 70. Recommend repeating next visit. [facility] Flowsheet Date 04/21/2022 Mcmahon Score Blood Edema Fundus Height Fundus Units Glucose Ketones Leukocytes Nitrite Labor Signs Protein Cervic Dilation Cervic Effacement Cervic Station Type Weight in lbs Pre/Post Dialysis Refused BP Diastolic BP Location Tested BP Systolic BP Type Fetus Heart Rate Present Fetus Movement Comments Flowsheet Date 04/21/2022 Mcmahon Score Blood Edema Fundus Height Fundus Units Glucose Ketones Leukocytes Nitrite Labor Signs Protein Cervic Dilation Cervic Effacement Cervic Station none 25 cm none trace Type Weight in lbs Pre/Post Dialysis Refused Weight 196.941615773205 BP Diastolic BP Location Tested BP Systolic BP Type 80 120 Fetus Heart Rate Present A 140 Fetus Movement A Yes Comments Patient is here again today to f/u on her newly diagnosed GHTN vs CHTN (1st seen at 20 weeks). She was started on labetalol 200 mg BID last week. Doing well on the med. Feels mostly okay - some nausea. No vomiting. No HAs, visual changes or RUQ pain. Was having some vaginal pain last night - feels fine today, no VB, discharge or LOF. Active baby. Growth U/S today - EFW 1.7 lbs (34%), AC 63%, BOBY 16, MVP 4.8. Will repeat in 3 weeks. Plan f/u in 1 week for BP check. She will also continue to check at home. Flowsheet Date 04/29/2022 Mcmahon Score Blood Edema Fundus Height Fundus Units Glucose Ketones Leukocytes Nitrite Labor Signs Protein Cervic Dilation Cervic Effacement Cervic Station none 26 cm none [place] Kim neg Type Weight in lbs Pre/Post Dialysis Refused Weight 198.864358086833 BP Diastolic BP Location Tested BP Systolic BP Type 86 120 Fetus Heart Rate Present A 150 Fetus Movement A Yes Comments Doing pretty well this week. + FM. Feeling some tightening at night - discussed s/s PTL and when to call. No VB or LOF. BPs at home mostly normal - has had occasional elevated but nothing >150/100. Will continue to monitor and call if persistently elevated or >150/100. Denies AUGUSTINE, visual changes or RUQ pain. Labs normal last week. Plan growth U/S in 2 weeks with GCT. Will also schedule BPPs weekly at 32 weeks (would increase to twice weekly if needed) and growth US q 4 weeks. Flowsheet Date 05/01/2022 Mcmahon Score Blood Edema Fundus Height Fundus Units Glucose Ketones Leukocytes Nitrite Labor Signs Protein Cervic Dilation Cervic Effacement Cervic Station Type Weight in lbs Pre/Post Dialysis Refused BP Diastolic BP Location Tested BP Systolic BP Type Fetus Heart Rate Present Fetus Movement Comments Pt seen in MAC for n/v/d-> s uspected viral gastroenteritis. Given fluids and ileana/compazine with improvement of symptoms. Observed throughout the day and discharged home in afternoon. Warning signs reviewed and discussed when to call. F/u next week. AH Flowsheet Date 05/07/2022 Mcmahon Score Blood Edema Fundus Height Fundus Units Glucose Ketones Leukocytes Nitrite Labor Signs Protein Cervic Dilation Cervic Effacement Cervic Station none 27 cm none none neg Type Weight in lbs Pre/Post Dialysis Refused Weight 201.153764493622 BP Diastolic BP Location Tested BP Systolic BP Type 78 R arm 120 sitting Fetus Heart Rate Present A 140 Fetus Movement A Yes Comments Was on L&D last week with st omach flu. Better now. Reviewed labs - p/c ratio was elevated at 0.46 but given her dehydration at that time, difficult to interpret. Will plan to repeat next visit. AST slightly elevated at 45 - discussed. BP has been normal range most of the time at home as well, occ a little elevated when stressed. will continue labetalol and monitoring. Has appt next week for growth U/S and GCT. + FM. No ctx, VB or LOF. Flowsheet Date 05/14/2022 Mcmahon Score Blood Edema Fundus Height Fundus Units Glucose Ketones Leukocytes Nitrite Labor Signs Protein Cervic Dilation Cervic Effacement Cervic Station Type Weight in lbs Pre/Post Dialysis Refused BP Diastolic BP Location Tested BP Systolic BP Type Fetus Heart Rate Present Fetus Movement Comments Flowsheet Date 05/14/2022 Mcmahon Score Blood Edema Fundus Height Fundus Units Glucose Ketones Leukocytes Nitrite Labor Signs Protein Cervic Dilation Cervic Effacement Cervic Station none 28 cm none none neg Type Weight in lbs Pre/Post Dialysis Refused Weight 200.563216930074 BP Diastolic BP Location Tested BP Systolic BP Type 62 R arm 104 sitting Fetus Heart Rate Present A 140 Fetus Movement A Yes Comments Gct/Hgb today. Feels well. D enies AUGUSTINE, visual changes, RUQ pain, dizziness, lightheadedness. No ctx, VB or LOF. Discussed 28 week packet. Discussed BP - low today, feels well. Sends in home BPs after visit (see pt case), range from 100s/60s to 150/100. Will keep labetalol dose the same for now. Plan to continue to monitor. Discussed growth U/S today - EFW 2.4 lbs (10.1%), AC 23%, BOBY 15, MVP 4.6. Discussed EFW just above IUGR. Plan to repeat in 4 weeks. Will do BPP with 30 week visit as well. F/U in 2 weeks. PHQ-9: 7, VENU-7: 8. Discussed mood - feels she is managing well and discussed stress of this with multiple issues that have occurred. Will call with concerns. Flowsheet Date 05/27/2022 Mcmahon Score Blood Edema Fundus Height Fundus Units Glucose Ketones Leukocytes Nitrite Labor Signs Protein Cervic Dilation Cervic Effacement Cervic Station Type Weight in lbs Pre/Post Dialysis Refused BP Diastolic BP Location Tested BP Systolic BP Type Fetus Heart Rate Present Fetus Movement Comments Flowsheet Date 05/27/2022 Mcmahon Score Blood Edema Fundus Height Fundus Units Glucose Ketones Leukocytes Nitrite Labor Signs Protein Cervic Dilation Cervic Effacement Cervic Station none none none neg Type Weight in lbs Pre/Post Dialysis Refused Weight 203.34279037493 BP Diastolic BP Location Tested BP Systolic BP Type 80 R arm 120 sitting Fetus Heart Rate Present A 140 Fetus Movement A Yes Comments BPP 8/8, BOBY 11.5, MVP 4.7. Feeling well. + FM. No ctx, VB or LOF. Discussed BP today - continue labetalol. Plan weekly BPPs at this point, may need to increase to twice weekly. Repeat growth at 32 weeks. No need for labs today with very stable BP and no symptoms. Continue to closely monitor. Flowsheet Date 06/03/2022 Mcmahon Score Blood Edema Fundus Height Fundus Units Glucose Ketones Leukocytes Nitrite Labor Signs Protein Cervic Dilation Cervic Effacement Cervic Station Type Weight in lbs Pre/Post Dialysis Refused BP Diastolic BP Location Tested BP Systolic BP Type Fetus Heart Rate Present Fetus Movement Comments Flowsheet Date 06/03/2022 Mcmahon Score Blood Edema Fundus Height Fundus Units Glucose Ketones Leukocytes Nitrite Labor Signs Protein Cervic Dilation Cervic Effacement Cervic Station none none neg Type Weight in lbs Pre/Post Dialysis Refused Weight 203.301825386577 BP Diastolic BP Location Tested BP Systolic BP Type 84 122 Fetus Heart Rate Present A Present Fetus Movement A Yes Comments BPP 8/8 normal BOBY, no compl aints IOL thoughts discussed. having some increase discomfort with urination will send UC. RTC in 1 week. JJ Flowsheet Date 06/09/2022 Mcmahon Score Blood Edema Fundus Height Fundus Units Glucose Ketones Leukocytes Nitrite Labor Signs Protein Cervic Dilation Cervic Effacement Cervic Station Type Weight in lbs Pre/Post Dialysis Refused BP Diastolic BP Location Tested BP Systolic BP Type Fetus Heart Rate Present Fetus Movement Comments Flowsheet Date 06/09/2022 Mcmahon Score Blood Edema Fundus Height Fundus Units Glucose Ketones Leukocytes Nitrite Labor Signs Protein Cervic Dilation Cervic Effacement Cervic Station none 31 cm none none trace Type Weight in lbs Pre/Post Dialysis Refused Weight 202.177633623967 BP Diastolic BP Location Tested BP Systolic BP Type 78 R arm 118 sitting Fetus Heart Rate Present A 150 Fetus Movement A Yes Comments U/S today - EFW 3.8 lbs (12% ), AC 12%, BOBY 12, MVP 4.2, normal dopplers, BPP 8/8. Feels well. BPs normal at home as well. Discussed continuing weekly BPPs and rechecking growth at 35 weeks. Discussed recommendation for IOL in 38th week. Patient prefers no IOL, wonders about stripping membranes prior to this. Discussed if cervix able, can do this. F/U 1 week. Flowsheet Date 06/18/2022 Mcmahon Score Blood Edema Fundus Height Fundus Units Glucose Ketones Leukocytes Nitrite Labor Signs Protein Cervic Dilation Cervic Effacement Cervic Station Type Weight in lbs Pre/Post Dialysis Refused BP Diastolic BP Location Tested BP Systolic BP Type Fetus Heart Rate Present Fetus Movement Comments Flowsheet Date 06/18/2022 Mcmahon Score Blood Edema Fundus Height Fundus Units Glucose Ketones Leukocytes Nitrite Labor Signs Protein Cervic Dilation Cervic Effacement Cervic Station none none none neg Type Weight in lbs Pre/Post Dialysis Refused Weight 200.277442893904 BP Diastolic BP Location Tested BP Systolic BP Type 84 R arm 126 sitting Fetus Heart Rate Present A 140 Fetus Movement A Yes Comments Tdap Given today.PS Doing we ll. BPs have been fine at home too. BPP 8/8, MVP 6. Continue weekly BPPs. Discussed IOL 38th week again unless BP increase. She agrees. Hoping for natural labor though. Discussed if cervix ripe, can strip membranes a couple days prior to IOL if she wants. F/U 1 week. Flowsheet Date 06/27/2022 Mcmahon Score Blood Edema Fundus Height Fundus Units Glucose Ketones Leukocytes Nitrite Labor Signs Protein Cervic Dilation Cervic Effacement Cervic Station Type Weight in lbs Pre/Post Dialysis Refused BP Diastolic BP Location Tested BP Systolic BP Type Fetus Heart Rate Present Fetus Movement Comments Flowsheet Date 06/27/2022 Mcmahon Score Blood Edema Fundus Height Fundus Units Glucose Ketones Leukocytes Nitrite Labor Signs Protein Cervic Dilation Cervic Effacement Cervic Station none none none neg Type Weight in lbs Pre/Post Dialysis Refused Weight 201.967496652384 BP Diastolic BP Location Tested BP Systolic BP Type 86 R arm 126 sitting Fetus Heart Rate Present A 140 Fetus Movement A Yes Comments BPs BPP 8/8, BOBY 14, MVP 5.5 . Dull ache mid abd on right. Plan pre-e today. Otherwise doing well. Has had a couple BPs that were a little higher this week. WIll continue to monitor. F/U in 1 week. Flowsheet Date 07/04/2022 Mcmahon Score Blood Edema Fundus Height Fundus Units Glucose Ketones Leukocytes Nitrite Labor Signs Protein Cervic Dilation Cervic Effacement Cervic Station Type Weight in lbs Pre/Post Dialysis Refused BP Diastolic BP Location Tested BP Systolic BP Type Fetus Heart Rate Present Fetus Movement Comments Flowsheet Date 07/04/2022 Mcmahon Score Blood Edema Fundus Height Fundus Units Glucose Ketones Leukocytes Nitrite Labor Signs Protein Cervic Dilation Cervic Effacement Cervic Station none none none neg 1cm 50% -3 Type Weight in lbs Pre/Post Dialysis Refused Weight 204.035577903986 BP Diastolic BP Location Tested BP Systolic BP Type 80 R arm 118 sitting Fetus Heart Rate Present A 140 Fetus Movement A Yes Comments NST. Gbs & Hgb today. Hgb 10 .9. Feels well. BPs at home mostly normal as well, often a little higher in the AM. BPP 08/14 (-2 breathing), 10/16 with reactive NST (BL 140, + accels, no decels, mod variability). EFW 5.2 lbs (11%), AC 18%. BOBY 15, MVP 6. [place] Sander did dopplers as EFW was close to IUGR - elevated at 4.55. Last growth U/S at 32 weeks EFW was 12% and AC 11%. Baby is growing along curve but is smaller than her other kids. Discussed FKCs and f/u on Thursday for repeat BPP, dopplers and NST. She agrees. Menstrual History Last Menstrual Date Menses Monthly On Bcp Conception Prior Menses Frequency Hcg Plus Date Menarche Onset Age 0810/16/2021 Genetic Screening And Infection History Question Response Note Cystic Fibrosis false Any Other Genetic History false George Disease false Other Infection History false Thalassemia (Luxembourgish, Greenlandic, Mediterranean, Or Background): MCV < 80 false Patient Or Baby's Father Had A Child With Defects Not Listed Above false Live With Someone With TB Or Exposed To TB false Patient's Age Will Be 35 Years Or Older At Estim ated Date of Delivery true Recurrent Loss, Or A Stillbirth false Patient Or Partner Has History Of Genital Herpes false Intellectual Disability/Autism false Maternal Metabolic Disorder (eg, Type 1 Diabetes , PKU) false History of HIV false Augustin-Sachs (eg, Religion, Cajun, [place]) f alse History Of STD, Gonorrhea, Chlamydia, HPV, Syphi lis false History of Hepatitis false Prior GBS-infected child false Neural Tube Defect (Meningomyelocele, Spina Bifi da, Or Anencephaly) false Previous Carrier Screening Test false Hemophilia Or Other Blood Disorders false Stoddard's Chorea false If Yes, Was Person Tested For Fragile X? false Other Inherited Genetic Or Chromosomal Disorder false Sickle Cell Disease Or Trait () false Congenital Heart Defect false Rash Or Viral Illness Since Last Menstrual Perio d false Muscular Dystrophy false Previous Hemoglobinopathy Evaluation false Down Syndrome false Delivery Information Delivery Date Delivery Type Labor Anesthesia Weeks Gestation Incision Type Labor Labor Length Hrs Delivered By Post Complications Tubal Sterilization Discharge Date Comments 3 Induce d 36.4 Ok Kinney MD In house MD delivered , IOL GHTN Discharge Information Feeding Method Contraceptive Method Maternal HG B and HCT Levels Ob Episode Information Episode Created Date Number of Fetuses Patient Bloodtype Patient rh Status Prepregnancy Weight lbs Domestic Partner Domestic Partner Phone Father Name Arborer Status 12/23/19 22 1 CLOSED Fetus Data First Name Last Name Admitted to NICU Weight (g) Sex Living Outcome Pediatric Complications Fetus ID Race Codes Race Delivery Type 3997.05 [id number] F Full Term [id number] Aknur Calculation Initial Ankur Date Initial Exam Date Initial Exam Provider Initial Ultrasound Date Last Menstrual Period Date Ultra Sound Weeks Gestation 0 Eighteen To Twenty Week Ankur Update Ultra Sound Date Fundal Height At Umbil Quickening Date Ultra Sound Latest Weeks Gestation Final Ankur Confirmed By Final Ankur Confirmed Date Final Ankur Date Ultra Sound Latest Days Gestation 0 0 Menstrual History Last Menstrual Date Menses Monthly On Bcp Conception Prior Menses Frequency Hcg Plus Date Menarche Onset Age Delivery Information Delivery Date Delivery Type Labor Anesthesia Weeks Gestation Incision Type Labor Labor Length Hrs Delivered By Post Complications Tubal Sterilization Discharge Date Comments 0 Regional-Ep idural 41 false 8 [place] Discharge Information Feeding Method Contraceptive Method Maternal HG B and HCT Levels
--- OUTSIDE RECORDS SUMMARY | 2024-08-26 11:22 | XMS_ITS | Encounter Summary ---
Author Organization [facility] Address [address] [address] Care Team Providers Care Studio Control Operator Name Role Phone Jaylin Gonzalez APRN, CNP Primary Care Provid er Reason for Visit * Reason Comments COUGH Encounter Details Date Type Department Care Team (Late st Contact Info) Description 04/25/2019 Nurse Triage [facility] [address] [place], [place] [phone] Jaylin Gonzalez APRN, CNP [id number] [place] [id number] COUGH Social History Tobacco Use Types Packs/Day Years Used Date Smoking Tobacco: Never Smokeless Tobacco: Former Alcohol Use Standard Drinks/Week Comments Yes 0 (1 standard drink = 0.6 oz pur e alcohol) Mostly w/ Dinner Comments Yes Sex and Gender Information Value Date Recorded Sex Assigned at Not on file Legal Sex Female 4:41 AM CDT Gender Identity Not on file Sexual Orientation Not on file 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 Recommended Flonase at night and nasal saline rinses during the day. Ifthis does not help with nasal/sinus congestion or she should notice onset of green purulent drainage, fever/chills, or worsening energy, advise re-evaluation. IDE SALES ACCOUNT MANAGER * Moriah Wong, BERTHA - 04/25/2019 3:28 PM CST Clinician Action: Input needed regarding ongoing symptoms. Okay to address when PCP back in the clinic Clinician Next Step: Route to [facility] to follow up and Patient IS expecting a call back from care team Specific Request(s): 1. Calling to let PCP know is feeling much better since being seen on 04/12/19 where diagnosed with sinus infection. States that cough mainly now when she lays down. Still has nasal congestion. Was sheokay to continue monitoring symptoms or should she be doing something else. Reason for Disposition ??? Taking antibiotic and nose still blocked Protocols used: SINUS INFECTION ON ANTIBIOTIC FOLLOW-UP [id number] Spoke with pt. Is 24 weeks . States was seen in clinic on 04/12/19 where started on antibiotic for sinus infection. States that has completed antibiotic. States that cough has significantly improved and is now only coughing when laying down. States that nose remains congested. Is taking OTC Mucinex. Denies any fevers. Denies any sinus pain/pressure. Denies any headache. Drinking fluids. Using extra humidity. Has not tried any nasal sprays so will try some normal saline at this time. States that using inhaler as needed at this time as states that tends to get lightheaded at times after using medication. Problem list reviewed as related to this call. IDE SALES ACCOUNT MANAGER * Mandy Perrin - 04/25/2019 1:50 PM CST Symptoms Describe your symptoms (if pain, include location): Ongoing cough/congestion, Pt requesting next steps from Jaylin Gonzalez as patient states she has completed course of antibiotics with ongoing sx. When did they start? March 2019 Additional comments (related to the above concern): If a prescription is needed, patient would like it filled at the pharmacy listed in Meds & Orders. (Verify the pharmacy patient would like to use for this request is highlighted in blue in Pharmacy Selection under Meds & Orders) Is it okay to leave a detailed message on your voicemail? Yes (Advise caller that the PN call back number will end with [phone] or unknown) For urgent symptoms: Please route and transfer to: Triage Pool (high priority) For routine symptoms: Please route to: Triage Pool (only transfer if caller insists) IDE SALES ACCOUNT MANAGER documented in this encounter Plan of Treatment Not on file documented as of this encounter Visit Diagnoses Not on filedocumented in this encounter Additional Health Concerns Infection Onset Date Last Indicated Resolved Time R/O COVID19 12/14/2019 12/14/2019 12/16/2019 8:28 PM CDT R/O COVID19 01/15/2021 01/15/2021 01/16/2021 10:4 9 PM OUTSIDE SALES ACCOUNT MANAGER R/O COVID19 08/13/2021 08/13/2021 08/14/2021 12:0 4 AM CDT documented as of this encounter Care Teams Studio Control Operator Relationship Specialty Start Date End Date Jaylin Gonzalez, TAMALE MAKER, PROJECT MGR [address] [place] [address] PCP - General 07/28/13 documented as of this encounter
--- OUTSIDE RECORDS SUMMARY | 2024-08-26 11:22 | XMS_ITS | Data Portability ---
Author Organization [facility], [id number] Address [address] [place] [address] Assessment Encounter Date Assessment Date Assessment LastModified [...] (Hb), fingerstick , blood 2022 023 ameschke Kb608_onrwkur _[place] , [address] [place] [address], [address], [place], [address], 3 15:32:35 TSH, serum or plasma 2022 023 [facility], [address] [facility], [address], [place], [address], 3 15:07:36 Pap test, slide(s), cervical 2022 023 [facility], [address] [facility], [address], [place], [address], 3 14:28:27 streptococc us group B DNA 2022 023 [facility], [address] [facility] [address], [address], [place], [address], 22:49:21 hemoglobin (Hb), fingerstick , blood 2022 023 anh Mao_shawn melendez_[place] , [address] [facility], [address], [place], [address], 3 18:05:04 Referral None recorded. Procedures None recorded. Surgeries None recorded. Imaging non-stress test 2022 023 anh porterridge[place] , [address] [facility], [address], [place], [address], 3 14:07:43 US, obstetric, biophysical profile 2022 023 [place] Bronwyn melendez_edina, [address], [address], [place], [address], 3 16:57:22 US, obstetric, biophysical profile 2022 023 lkoidahl Ic803_iwtfoms le_edina, [address], [address], [place], [address], 3 14:36:58 Medication Orders labetalol 100 mg tablet 2022 023 [id number], [address] [facility], [place], [address], 3 18:28:07 Patient TargetsNo targets recorded. Patient [...] T STATU S FINAL 06/05 Not Available [address], [place], [address], 06/05/2022 06:30:55 06/04/19 23 06/03/2022 urina lysis , dipst ick Unknown Analyte Clean Catch Not Available [address], [place], [address], 06/03/2022 14:25:30 06/04/19 23 06/03/2022 urina lysis , dipst ick Unknown Analyte negati ve Not Available [address] [address], [place], [address], 06/03/2022 14:25:30 06/04/19 23 06/03/2022 urina lysis , dipst ick Unknown Analyte negati ve Not Available [address], [place], [address], 06/03/2022 14:25:30 06/04/19 23 06/03/2022 urina lysis , dipst ick Unknown Analyte negati ve Not Available [address], [place], [address], 06/03/2022 14:25:30 06/04/19 23 06/03/2022 urina lysis , dipst ick Unknown Analyte 1.005 Not Available [address], [place], [address], 06/03/2022 14:25:30 06/04/19 23 06/03/2022 urina lysis , dipst ick Unknown Analyte negati ve Not Available [id number]_auups da le_[place] [address], [place], [address], 06/03/2022 14:25:30 06/04/19 23 06/03/2022 urina lysis , dipst ick Unknown Analyte 6.0 Not Available [address], [place], [address], 06/03/2022 14:25:30 06/04/19 23 06/03/2022 urina lysis , dipst ick Unknown Analyte negati ve Not Available [address], [place], [address], 06/03/2022 14:25:30 06/04/19 23 06/03/2022 urina lysis , dipst ick Unknown Analyte 0.2 Not Available [address], [place], [address], 06/03/2022 14:25:30 06/04/19 23 06/03/2022 urina lysis , dipst ick Unknown Analyte negati ve Not Available [address], [place], [address], 06/03/2022 14:25:30 06/04/19 23 06/03/2022 urina lysis , dipst ick Unknown Analyte trace Not Available [address], [place], [address], 06/03/2022 14:25:30 06/04/19 23 06/03/2022 urina lysis , dipst ick Unknown Analyte yellow Not Available [address], [place], [address], 06/03/2022 14:25:30 06/04/19 23 06/03/2022 urina lysis , dipst ick Unknown Analyte clear Not Available [id number]_ southda le_[place] [address] [place] [facility] [address], [place], [address], 06/03/2022 14:25:30 06/28/19 23 06/27/2022 CBC WITH PLATE LETS WBC count 7.3 10e3/ uL 4.0-11 .0 Not Available [address], [place], [address], 06/27/2022 22:33:10 06/28/19 23 06/27/2022 CBC WITH PLATE LETS RBC count 3.55 10e6/ uL 3.80-5 .20 low Not Available [address], [place], [address], 06/27/2022 22:33:10 06/28/19 23 06/27/2022 CBC WITH PLATE LETS hemoglobin 11.8 g/dL 11.7-1 5.7 Not Available [address], [place], [address], 06/27/2022 22:33:10 06/28/19 23 06/27/2022 CBC WITH PLATE LETS hematocrit 37.0 % 35.0-4 7.0 Not Available [address], [place], [address], 06/27/2022 22:33:10 06/28/19 23 06/27/2022 CBC WITH PLATE LETS MCV 104 fL 78-100 high Not Available [address], [place], [address], 06/27/2022 22:33:10 06/28/19 23 06/27/2022 CBC WITH PLATE LETS MCH 33.2 pg 26.5-3 3.0 high Not Available [address], [place], [address], 06/27/2022 22:33:10 06/28/19 23 06/27/2022 CBC WITH PLATE LETS MCHC 31.9 g/dL 31.5-3 6.5 Not Available [address], [place], [address], 06/27/2022 22:33:10 06/28/19 23 06/27/2022 CBC WITH PLATE LETS RDW 13.3 % 10.0-1 5.0 Not Available [address], [place], [address], 06/27/2022 22:33:10 06/28/19 23 06/27/2022 CBC WITH PLATE LETS platelet count 165 10e3/ uL 150-45 0 Not Available [address], [place], [address], 06/27/2022 22:33:10 06/28/19 23 06/27/2022 CBC WITH PLATE LETS % neutrophils 79 % Not Available [address], [place], [address], 06/27/2022 22:33:10 06/28/19 23 06/27/2022 CBC WITH PLATE LETS % lymphocytes 13 % Not Available [address], [place], [address], 06/27/2022 22:33:10 06/28/19 23 06/27/2022 CBC WITH PLATE LETS % monocytes 6 % Not Available [address], [place], [address], 06/27/2022 22:33:10 06/28/19 23 06/27/2022 CBC WITH PLATE LETS % eosinophils 1 % Not Available [address], [place], [address], 06/27/2022 22:33:10 06/28/19 23 06/27/2022 CBC WITH PLATE LETS % basophils 0 % Not Available [address], [place], [address], 06/27/2022 22:33:10 06/28/19 23 06/27/2022 CBC WITH PLATE LETS % immature granulocytes 1 % Not Available [address], [place], [address], 06/27/2022 22:33:10 06/28/19 23 06/27/2022 CBC WITH PLATE LETS NRBCs per 100 WBC 0 /100 <1 Not Available [address], [place], [address], 06/27/2022 22:33:10 06/28/19 23 06/27/2022 CBC WITH PLATE LETS absolute neutrophils 5.8 10e3/ uL 1.6-8. 3 Not Available [address], [place], [address], 06/27/2022 22:33:10 06/28/19 23 06/27/2022 CBC WITH PLATE LETS absolute lymphocytes 1.0 10e3/ uL 0.8-5. 3 Not Available [address], [place], [address], 06/27/2022 22:33:10 06/28/19 23 06/27/2022 CBC WITH PLATE LETS absolute monocytes 0.4 10e3/ uL 0.0-1. 3 Not Available [address], [place], [address], 06/27/2022 22:33:10 06/28/19 23 06/27/2022 CBC WITH PLATE LETS absolute eosinophils 0.1 10e3/ uL 0.0-0. 7 Not Available [address], [place], [address], 06/27/2022 22:33:10 06/28/19 23 06/27/2022 CBC WITH PLATE LETS absolute basophils 0.0 10e3/ uL 0.0-0. 2 Not Available [address], [place], [address], 06/27/2022 22:33:10 06/28/19 23 06/27/2022 CBC WITH PLATE LETS absolute immature granulocytes 0.0 10e3/ uL <=0.4 Not Available [address], [place], [address], 06/27/2022 22:33:10 06/28/19 23 06/27/2022 CBC WITH PLATE LETS absolute NRBCs 0.0 10e3/ uL Not Available [address], [place], [address], 06/27/2022 22:33:10 06/28/19 23 06/27/2022 PROTE IN RANDO M URINE total protein urine mg/dL 10.1 mg/dL 1.0-14 .0 The refer ence range s have not been estab lishe d in urine prote in. The resul ts shoul d be integ rated into the clini jacobo bijal xt for inter preta tion. Not Available [address], [place], [address], 06/27/2022 22:33:11 06/28/19 23 06/27/2022 PROTE IN RANDO M URINE total protein urine mg/mg creat 0.11 mg/mg _cr 0.00-0 .20 Not Available [address], [place], [address], 06/27/2022 22:33:11 06/28/19 23 06/27/2022 PROTE IN RANDO M URINE creatinine urine mg/dL 90.8 mg/dL The refer ence range s have not been estab lishe d in urine creat inine . The resul ts shoul d be integ rated into the clini jacobo bijal xt for inter preta tion. Not Available [address], [place], [address], 06/27/2022 22:33:11 06/28/19 23 06/27/2022 ALT (DECLAN INE AMINO TRANS FERAS E) ALT 20 U/L 10-35 Not Available [address], [place], [address], 06/28/2022 00:14:20 06/28/19 23 06/27/2022 AST (ASPA RTATE AMINO TRANS ERASE ) AST 36 U/L 10-35 high Not Available [address], [place], [address], 06/28/2022 00:14:21 06/28/19 23 06/27/2022 CREAT ININE creatinine 0.68 mg/dL 0.51-0 .95 Not Available [address], [place], [address], 06/28/2022 00:14:21 06/28/19 23 06/27/2022 CREAT ININE GFR estimate >90 mL/mi n/1.7 3m2 >60 eGFR calcu lated using 2020 CKD-E PI equat ion. Not Available [address], [place], [address], 06/28/2022 00:14:21 07/05/19 23 07/04/2022 GROUP B [...] for point -of-c are use. Not Available [address], [place], [address], 07/05/2022 22:49:21 07/05/19 23 07/04/2022 hemog lobin (Hb), finge rstic k, blood fingerstick hemoglobin 10.2 g/dL 12.0-1 5.0 Not Available Dl342_lorswxg le_[place] [address] [facility] [address], [place], [address], 07/04/2022 17:39:55 09/03/19 23 09/02/2022 TSH WITH REFLE X TO FREE T4 TSH 2.98 uIU/m L 0.30-4 .20 Not Available [facility] [address] [facility] [address], [place], [address], 09/03/2022 15:07:36 09/03/19 23 09/02/2022 GYNEC OLOGI C CYTOL OGY (PAP SMEAR ) gynecologic cytology SEE RESULT S BELOW abnormal SPECI MEN SOURC E Slick ing Cervi x BKR LAB AP [employer] INTER PRETA TION: Atypi jacobo squam ous [...] or other cance rs. BKR LAB AP [employer] ADEQU ACY: Satis facto ry for evalu [...] this testi ng was compl eted at [facility] Not Available [address], [place], [address], 09/08/2022 14:28:27 09/03/19 23 09/02/2022 HPV HIGH RISK TYPES DNA CERVI JACOBO other HR HPV Negati ve negati ve Not Available [address], [place], [address], 09/08/2022 14:28:43 09/03/19 23 09/02/2022 HPV HIGH RISK TYPES DNA CERVI JACOBO HPV16 DNA Negati ve negati ve Not Available [address], [place], [address], 09/08/2022 14:28:43 09/03/19 23 09/02/2022 HPV HIGH RISK TYPES DNA CERVI JACOBO HPV18 DNA Negati ve negati ve Not Available [facility] [address] [facility] [address], [place], [address], 09/08/2022 14:28:43 09/03/19 23 09/02/2022 HPV HIGH RISK TYPES DNA CERVI JACOBO final diagnosis See note below This patie nt's sampl e is negat mauricio for HPV DNA. This test was devel oped and its perfo rmanc e mackenzie cteri stics deter mined by the [facility] [...] wup is recom maximilian d. Not Available [facility] [address] [facility] [address], [place], [address], 09/08/2022 14:28:43 09/03/1909/02/2022 hemog lobin (Hb), finge rstic k, blood fingerstick hemoglobin 12.4 g/dL 12.0-1 5.0 Not Available [id number] le_[place] [address] [facility] [address], [place], [address], 09/02/2022 15:28:31 05/28/19 23 05/27/2022 US, obste tric, bioph ysica l profi le No observ ation record ed. [place] Kristen [address], [place], [address], 05/30/2022 16:30:31 06/04/19 23 06/03/2022 US, obste tric, bioph ysica l profi le No observ ation record ed. [email or web address] Kristen [address], [place], [address], 06/04/2022 14:19:07 06/10/19 23 06/09/2022 US, obste tric, follo w-up No observ ation record ed. [email or web address] [address], [place], [address], 06/09/2022 14:55:59 06/19/19 23 06/18/2022 US, obste tric, bioph ysica l profi le No observ ation record ed. [place] Kristen [address], [place], [address], 06/20/2022 15:04:59 06/28/19 23 06/27/2022 US, obste tric, bioph ysica l profi le No observ ation record ed. [email or web address] [address], [place], [address], 07/08/2022 13:24:38 07/05/19 23 07/04/2022 US, obste tric, bioph ysica l profi le No observ ation record ed. aalmdanora Koenige [address], [place], [address], 07/06/2022 21:19:31 07/10/1907/04/2022 non-s tress test No observ ation record ed. [facility] Sz342_vcckor a le_[address], [place], [address], 07/10/2022 10:19:28 07/11/1907/04/2022 non-s tress test No observ ation record ed. [facility] Ps937_ccqpcr a [address], [place], [address], 07/10/2022 10:55:24 Result Notes None recorded. Problems Name Problem SNOMED Code Status Onset Date Resolution Date Notes Provider Name and Address Organization Details Recorded Time Irritabl e bowel syndrome 76326119 Active Bronwyn Adam (TERMED) null, [place] - [facility] 2 14:18:43 Hyperten sive disorder 50327449 Active Bronwyn Adam (TERMED) [place] [facility] 2 14:18:57 Pregnanc y 84618772 Completed 202107/15/2022 Lynn Greenfiel d [place], [place] [facility] 3 14:38:17 Advanced maternal age 998087169 Completed normal MT21 Lynn Greenfiel d [place] [facility] 3 14:38:08 Administ ration of influenz a vaccine Completed 2021 Lynn Greenfiel d [place] [facility] 3 14:38:08 Nausea and vomiting 16751218 Completed 2022 Lynn Greenfiel d [place] [facility] 3 14:38:08 Nausea and vomiting 16337080 Active 2022 Lynn Greenfiel d [place] [facility] 3 14:38:08 Benign essentia l hyperten asha complica ting pregnanc y, childbir th and the puerperi - not delivere d 141527379 Completed CHTN vs GHTN. BP elevated starting at 20 wks. Labetalol 200 mg BID. Lynn booth null, [facility] 3 14:38:08 Problem Notes None recorded. Procedures Surgical History Date Name Laterality Status Provider Name and Address Organization Details Recorded Time 09/03/19 23 Date of Last Pap Smear completed Chrissy Monroe [facility] 09/08/2022 14:41:40 10/09/19 19 dilation and curettage completed Jessica Kaplan [facility] 04/21/2022 08:33:39 07/22/19 17 Date of Last Mammogram completed Michell Wong(TERM) [facility] 10/24/2020 09:14:27 tonsillectomy completed Not Available [facility] 10/17/2019 01:04:42 tooth extraction completed Not Available [facility] 10/17/2019 01:04:42 repair [place] [address] [facility],[address], [place], [address], [facility] 12/22/2021 09:15:59 Imaging Results None recorded. Procedure [...] Address Organization Details Last Updated DateTime 06/27/2022 35988.0663 7 g 126 mm[Hg] 86 mm[Hg] Bronwyn Adam (TERMED) [facility] 06/27/2022 15:21:04 Date Recorded Body weight Systolic blood pressure Diastolic blood pressure Provider Name and Address Organization Details Last Updated DateTime 07/04/2022 46949.8434 8 g 118 mm[Hg] 80 mm[Hg] Bronwyn Adam (TERMED) [facility] 07/04/2022 16:38:27 Date Recorded Body height Body mass index (BMI) Body weight Systolic blood pressure Diastolic blood pressure Provider Name and Address Organization Details Last Updated DateTime 07/18/2022 175.26 cm 28.2 kg/m2 10743.14 g 110 mm[Hg] 70 mm[Hg] Indy Wrighta (TERMED) [facility] 12:04:34 Date Recorded Body height Body mass index (BMI) Body weight Systolic blood pressure Diastolic blood pressure Provider Name and Address Organization Details Last Updated DateTime 09/02/2022 175.26 cm 28.5 kg/m2 18864.33 g 124 mm[Hg] 86 mm[Hg] Bronwyn Adam (TERMED) [facility] 15:27:12 Social History Question Answer Notes LastModified by Organizat ion Details LastModified Time Tobacco Smoking Status Never Smoker Jessica Kaplan [facility] 04/21/2022 08:33:21 If You Are , What Was Your Level Of Alcohol Consumption Prior To ? Moderate [email or web address] Information not available 09/02/2022 What Is Your Level Of Caffeine Consumption? None [email or web address] Information not available 09/02/2022 Which Illicit Or Recreational Drugs Have You Used? Denies Illicit Substance Abuse [email or web address] Information not available 09/02/2022 Children's Names/ Bari-05/31/17 . Elviaghassan- Information not available 12/17/2021 [facility] [place] Informat ion not available 12/17/2021 History Of [...] Benign neoplasm of colon Colon Polyp, Benign [email or web address] Not available 09/02/2022 15:05:27 Mother Family history of mental disorder Depres asha [email or web address] Not available 09/02/2022 15:05:27 Mother Hyperlipidem ia High Choles terol / Hyperl ipidem ia [email or web address] Not available 09/02/2022 15:05:27 Maternal Grandmother Disorder of thyroid gland Thyroi d Diseas e Not available 10/17/2019 01:08:00 Paternal Grandfather Hyperlipidem ia High Choles terol / Hyperl ipidem ia [email or web address] Not available 09/02/2022 15:05:27 Sister Disorder of thyroid gland Thyroi d Diseas e Not available 10/17/2019 01:08:00 Mother Disorder of thyroid gland Thyroi d Diseas e Not available 10/17/2019 01:08:00 Maternal Grandfather Family history of diabetes mellitus Diabet es Not available 09/02/2022 15:05:27 Maternal Grandmother Hyperlipidem ia High Choles terol / Hyperl ipidem ia [email or web address] Not available 09/02/2022 15:05:27 Medical History Condition [...] Recorded Time Tdap 8 completed Not Available [facility] 10/17/2019 01:08:48 Tdap 8 completed Not Available [facility] 09/02/2022 15:06:12 Tdap 0 completed Not Available [facility] 09/02/2022 15:06:12 Influenza, split virus, trivalent, PF 7 completed Not Available [facility] 10/17/2019 01:08:48 Influenza, split virus, trivalent, preservative 9 completed Not Available [facility] 09/02/2022 15:06:12 Influenza, split virus, quadrivalent, PF 2 [place] [address] [employer],[address], [place], [address], [facility] 12/17/2021 14:27:28 Influenza, split virus, quadrivalent, PF 8 [place] [address] [employer],[address], [place], [address], [place] [facility] 12/17/2021 14:27:28 HPV, quadrivalent 7 [place] [address] [employer],[address], [place], [address], [place] [facility] 12/17/2021 14:27:28 Influenza, split virus, quadrivalent, PF 0 [place] [address] [employer],[address], [place], [address], [facility] 12/17/2021 14:27:28 COVID-19, mRNA, LNP-S, PF, 30 mcg/0.3 mL dose 1 [place] [address] [employer],[address], [place], [address], [place] [facility] 12/17/2021 14:27:28 Influenza, split virus, quadrivalent, PF 4 [place] [address] [employer],[address], [place], [address], [place] [facility] 12/17/2021 14:27:28 HPV, quadrivalent 9 [place] [address] [employer],[address], [place], [address], [place] [facility] 12/17/2021 14:27:28 Influenza, split virus, quadrivalent, PF 6 [place] [address], [place], [address], [place] [facility] 12/17/2021 14:27:28 meningococcal MPSV4 4 [place] [address] [address], [place], [address], [place] [facility] 12/17/2021 14:27:28 COVID-19, mRNA, LNP-S, PF, 30 mcg/0.3 mL dose 2 [place] [address] [address], [place], [address], [place] [facility] 12/17/2021 14:27:28 Tdap 9 [place] [address] [address] [employer],[address], [place], [address], [place] [facility] 12/17/2021 14:27:28 COVID-19, mRNA, LNP-S, PF, 30 mcg/0.3 mL dose 1 [place] [address] [address],[address], [place], [address], [place] [facility] 12/17/2021 14:27:28 Influenza, MDCK, quadrivalent, PF 2 [place] [address] [address],[address], [place], [address], [place] [facility] 01/12/2022 12:32:03 Tdap 3 [place] [address] [address], [place], [address], [place] [facility] 06/20/2022 13:33:32 Past Encounters Encounter ID Performer Location Encounter Start Date Encounter Closed Date Diagnosis/Indication Diagnosis SNOMED-CT Code Diagnosis ICD10 Code Diagnosis Note [id number] TODD RICH MD [id number] [address] ,[address] [place] [address] 12/17/2021 13:35:25 12/17/2021 14:29:57 Finding of viability of 646096838 O36.8990 Gestation period, 7 weeks 37720319 Z3A.01 [id number] CHARLENE DAWSON MD [id number] ,[address] [place] [address] 12/17/2021 14:00:34 12/22/2021 22:50:01 Intrauterine 25362478 Z34.81 [id number] TODD RICH MD [id number] ,[address] [place] [address] 01/03/2022 12:11:24 01/03/2022 13:52:21 Routine care 647355083 Z34.91 Gestation period, 10 weeks 53208653 Z3A.10 [id number] CHARLENE DAWSON MD [id number] [address] ,[address] [place] [address] 01/03/2022 12:48:32 01/03/2022 15:12:43 Nausea and vomiting 82623491 R11.2 Gestation period, 10 weeks 67449145 Z3A.10 [id number] CHARLENE DAWSON MD [address] ,[facility] [address] [place] [address] 01/10/2022 13:56:51 01/14/2022 12:05:55 Administration of influenza vaccine 04441140 Z23 Gestation period, 11 weeks 26012877 Z3A.11 Advanced m atelashonl age 896099107 O09.193 [id number] TYLER RENTERIA MD [id number] [address] ,[address] [place] [address] 01/10/2022 14:30:02 01/10/2022 14:44:35 heart sounds absent 290329059 O36.8399 Gestation period, 11 weeks 06613738 Z3A.11 [id number] CHARLENE DAWSON MD [id number] [address] ,[address] [place] [address] 02/12/2022 09:08:33 02/12/2022 09:34:00 Gestation period, 15 weeks 6461138 Z3A.15 Chromosome abnormality screening 537415551 Z13.79 [id number] DUANE SHIELDS, [address] ,[address] [place] [address] 03/11/2022 14:22:51 03/11/2022 15:03:37 Nausea and vomiting 62357577 R11.2 [id number] TODD RICH MD [id number] [address] ,[address] [place] [address] 03/14/2022 14:23:20 03/14/2022 16:12:05 screening 024486702 Z36.3 Gestation period, 20 weeks 30737657 Z3A.20 [id number] CHARLENE DAWSON MD [id number] [address] ,[address] [place] [address] 03/14/2022 15:29:30 03/17/2022 13:00:35 Increased blood pressure 45489136 R03.0 Gestation period, 20 weeks 42971810 Z3A.20 [id number] TYLER RENTERIA MD [id number] [address] ,[address] [place] [address] 04/11/2022 10:23:00 04/11/2022 10:57:12 screening 883508162 Z36.3 Gestation period, 24 weeks 862476501 Z3A.24 [id number] CHARLENE DAWSON MD [id number] [address] ,[address] [place] [address] 04/11/2022 10:55:37 04/14/2022 09:38:33 Increased blood pressure 57894666 R03.0 Gestation period, 24 weeks 397931269 Z3A.24 [id number] CHARLENE DAWSON MD [id number] [address] ,[address] [place] [address] 04/16/2022 12:07:41 04/16/2022 13:18:38 -induced hypertension [id number] O13.9 Gestation period, 24 weeks [id number] Z3A.24 [id number] CHARLENE DAWSON MD [address] ,[address] [place] [address] 04/21/2022 10:15:39 04/21/2022 11:07:07 -induced hypertension [id number] O13.9 Gestation period, 25 weeks [id number] Z3A.25 [id number] LY RUIZ MD [id number] ,[address] [place] [address] 04/21/2022 09:41:57 04/21/2022 10:44:19 -induced hypertension [id number] O13.9 Gestation period, 25 weeks [id number] Z3A.25 [id number] CHARLENE DAWSON MD [id number] ,[address] [place] [address] 04/29/2022 14:50:38 04/29/2022 15:51:09 Gestation period, 26 weeks [id number] Z3A.26 Chronic hy pertension in obstetric context [id number] O16.9 [id number] MD [facility] ,[address] [place] [address] 05/07/2022 12:03:01 05/07/2022 13:08:22 Gestation period, 27 weeks [id number] Z3A.27 [id number] TYLER RENTERIA MD [id number] THDA[address] ,[address] [place] [address] 05/14/2022 09:38:20 05/14/2022 10:14:44 Hypertensive disorder [id number] I10 Gestation period, 28 weeks 42343198 Z3A.28 [id number] CHARLENE DAWSON MD [id number]_AKO THDA[address] ,[address] [place] [address] 05/14/2022 10:10:48 05/14/2022 14:08:17 screening [id number] Z36.89 Gestation period, 28 weeks 76539217 Z3A.28 [id number] TYLER RENTERIA MD [id number]_NML THDA[address] ,[facility] [address] [place] [address] 05/27/2022 13:41:09 05/27/2022 14:13:55 Benign essential hypertension complicating , childbirth and the puerperium - not delivered 380539083 O10.019 Small for gestational age fetus 464643125 O36.5999 Gestation period, 30 weeks 54360247 Z3A.30 [id number] CHARLENE DAWSON MD [id number] THDA[address] ,[address] [place] [address] 05/27/2022 15:37:19 05/28/2022 15:14:11 Gestation period, 30 weeks 36884235 Z3A.30 [id number] TODD RICH MD [id number] THDA[address] ,[address] [place] [address] 06/03/2022 11:59:22 06/03/2022 14:10:39 Hypertensive disorder 34802339 I10 Gestation period, 31 weeks 39289804 Z3A.31 [id number] DUANE SHIELDS, TF363_NSY [address] ,[address] [place] [address] 06/03/2022 14:19:17 06/03/2022 15:03:39 Dysuria 13176781 R30.0 [id number] LY RUIZ MD [address] ,[address] [place] [address] 06/09/2022 08:59:47 06/09/2022 09:24:52 Benign essential hypertension complicating , childbirth and the puerperium - not delivered 249686842 O10.019 Small for gestational age fetus 582899109 O36.5999 Gestation period, 32 weeks 3235917 Z3A.32 [id number] CHARLENE DAWSON MD [address] ,[address] [place] [address] 06/09/2022 09:21:35 06/09/2022 10:48:59 Gestation period, 32 weeks 4334071 Z3A.32 [id number] TYLER RENTERIA MD [address] ,[address] [place] [address] 06/18/2022 16:06:46 06/20/2022 16:16:31 Hypertensive disorder 87727818 I10 Gestation period, 33 weeks 41148396 Z3A.33 [id number] CHARLENE DAWSON MD [address] ,[address] [place] [address] 06/18/2022 16:42:44 06/20/2022 14:02:10 Gestation period, 30 weeks 60919173 Z3A.30 [id number] HOMA PENDLETON MD [address] ,[address] [place] [address] 06/27/2022 12:09:44 06/27/2022 12:42:39 Hypertensive disorder 62524790 I10 Gestation period, 35 weeks 89326852 Z3A.35 [id number] CHARLENE DAWSON MD [id number]_VTR [address] ,[address] [place] [address] 06/27/2022 15:05:25 06/30/2022 08:42:36 Chronic hypertension in obstetric context 3460414 O16.9 Gestation period, 35 weeks 29033905 Z3A.35 [id number] TYLER RENTERIA MD [address] ,[address] [place] [address] 07/04/2022 15:29:22 07/04/2022 16:41:38 Hypertensive disorder 84409573 I10 Gestation period, 36 weeks 91685413 Z3A.36 [id number] CHARLENE DAWSON MD [id number] [address] ,[facility] [address] [place] [address] 07/04/2022 16:16:14 07/08/2022 10:00:33 Gestation period, 36 weeks 77681726 Z3A.36 screening 2437 97941 Z36.89 [id number] CHARLENE DAWSON MD [id number]_FLO [address] ,[facility] [address] [place] [address] 07/18/2022 12:00:44 07/21/2022 09:47:35 Pre-eclampsia or eclampsia with pre-existing hypertension - delivered 662686675 O10.919 Discussed BP today. Recommend decreasing labetalol to 100 mg PO BID. Keep checking BPs at home. Patient to update me in 1 week with BPs on lower dose or sooner if they are worsening. [id number] CHARLENE DAWSON MD [id number] [address] ,[facility] [address] [place] [address] 09/02/2022 14:59:17 09/17/2022 14:15:24 state, 6 weeks 25785922 Z39.2 Night sweats 39077959 R6 1 Screening for malignant neoplasm of cervix 038674313 Z12.4 -induced hypertension [id number] 9100 O13.9 Discussed BP - borderline today [...] Date Sequence Insurance Name Policy Number Policy Mtaa Covered Member ID Mata Member ID Guarantor Name 10/22/2022 1 [facility]-[employer] - [employer] - [employer] (O) Dania M Blazer [id number] Dania M Blazer 10/16/2022 1 [employer] [facility] [id number] Dania M Blazer [id number] Dania M Blazer 10/22/2022 2 [facility] - CIGNA Dania M Blazer [id number] Dania M Blazer 09/01/2022 1 [facility] [id number] Dania M Blazer [id number] Dania M Blazer 03/14/2022 SLIDING FEE [...] for Baby:no Breast or Bottle Feeding:breastfeed ing Helix Since Delivery:noNotes:D oing well. States mood is okay. Getting some sleep. Bleeding seems normal. BPs at home mostly 100-120/70s. Occasionally gets a little higher. No AUGUSTINE, visual changes or [place] [address] [facility],[address], [place], [address], [place] - [employer] 07/19/2022 21:05:46 09/02/2022 text/html ([employer])Reported bypatient.Reason for visit:Routine 6 week Delivering Provider:Nirmal Date of Delivery:07/08/2022 Type of Delivery:spontaneo us vaginal Gestational Age at Delivery:36 weeks Antepartum Problems:preeclamp yrn; CHTN with superimposed pre-eclampsia Labor/Delivery:sec ond degree laceration NICU Stay for Baby:no Breast or Bottle Feeding:breastfeed ing Helix Since Delivery:no Problems:HTN Depression:patient has some anxiety/depression but states she is currently doing well on sertraline Last Pap Smear:date: 07/21/2018; result normal and negative HPVNotes:Stopped labetalol 100 mg PO BID about 1 week ago as she ran out. BPs at home have been running 120-150/80-90. Overall feeling well. Has been having some [place] [address], [place], [address], [facility] - [employer] 09/12/2022 18:41:00 OBGyn Episode Ob Episode Information Episode Created Date Number of Fetuses Patient Bloodtype Patient rh Status Prepregnancy Weight lbs Domestic Partner Domestic Partner Phone Father Name Tire Changer Status 12/23/19 22 1 CLOSED Fetus Data First Name Last Name Admitted to NICU Weight (g) Sex Living Outcome Pediatric Complications Fetus ID Race Codes Race Delivery Type 3968.93 M Full Term 96098 Ankur Calculation Initial Ankur Date Initial Exam [...] Domestic Partner Domestic Partner Phone Father Name Tire Changer Status 12/18/19 22 1 A Positive 185 CLOSED Fetus Data First Name Last Name Admitted to NICU Weight (g) Sex Living Outcome Pediatric Complications Fetus ID Race Codes Race Delivery Type F [place]atur e 32473 Problems Problem Notes Dated by 7 week U/S Problem Name Start Date End Date Resolution Snomed Code Not e Nausea and vomiting 03/11/2022 [id number] Benign essential hypertension complicating , childbirth and the puerperium - not delivered 807191720 CHTN vs GHTN. B P elevated starting at 20 wks. Labetalol 200 mg BID. Advanced maternal age 930825659 normal MT21 Administration of influenza vaccine 01/10/2022 [id number] Ankur Calculation Initial Ankur Date Initial Exam [...] Weight in lbs Pre/Post Dialysis Refused Weight 185.007029441707 BP Diastolic BP Location Tested BP Systolic [...] Weight in lbs Pre/Post Dialysis Refused Weight 187.41535465985 BP Diastolic BP Location Tested BP Systolic BP Type 82 122 Fetus Heart Rate Present A 172 Fetus Movement A No Comments Patient presents for f/u via [employer] U/S. Reports some bleeding last week. Was [...] Weight in lbs Pre/Post Dialysis Refused Weight 189.996607687320 BP Diastolic BP Location Tested BP Systolic [...] Weight in lbs Pre/Post Dialysis Refused Weight 194.259212908486 BP Diastolic BP Location Tested BP Systolic [...] merry on thursday. LAYLA Flowsheet Date 03/14/2022 Mcmahon Score Blood Edema [...] Weight in lbs Pre/Post Dialysis Refused Weight 191.079390998288 BP Diastolic BP Location Tested BP Systolic [...] Weight in lbs Pre/Post Dialysis Refused Weight 193.05777382680 BP Diastolic BP Location Tested BP Systolic [...] Present Fetus Movement Comments Patient presented to [facility] on Monday 05/01 for above evaluation. Initial [...] Weight in lbs Pre/Post Dialysis Refused Weight 199.170051987339 BP Diastolic BP Location Tested BP Systolic [...] Weight in lbs Pre/Post Dialysis Refused Weight 196.795866715915 BP Diastolic BP Location Tested BP Systolic [...] Effacement Cervic Station none 26 cm none Irvine Kim neg Type Weight in lbs Pre/Post Dialysis Refused Weight 198.933727441460 BP Diastolic BP Location Tested BP Systolic [...] Weight in lbs Pre/Post Dialysis Refused Weight 201.779555090176 BP Diastolic BP Location Tested BP Systolic [...] Weight in lbs Pre/Post Dialysis Refused Weight 200.497920029022 BP Diastolic BP Location Tested BP Systolic [...] Weight in lbs Pre/Post Dialysis Refused Weight 203.00878564141 BP Diastolic BP Location Tested BP Systolic [...] Weight in lbs Pre/Post Dialysis Refused Weight 203.099051787991 BP Diastolic BP Location Tested BP Systolic [...] Weight in lbs Pre/Post Dialysis Refused Weight 202.486246178765 BP Diastolic BP Location Tested BP Systolic [...] Weight in lbs Pre/Post Dialysis Refused Weight 200.048180655942 BP Diastolic BP Location Tested BP Systolic [...] Weight in lbs Pre/Post Dialysis Refused Weight 201.183061144363 BP Diastolic BP Location Tested BP Systolic [...] Weight in lbs Pre/Post Dialysis Refused Weight 204.139515754455 BP Diastolic BP Location Tested BP Systolic [...] (11%), AC 18%. BOBY 15, MVP 6. Global Account Executive did dopplers as EFW was close to [...] Disease false Other Infection History false Thalassemia (Icelandic, Citizen Of [place], Mediterranean, Or Background): MCV < 80 false [...] false History of HIV false Augustin-Sachs (eg, Orthodox, Cajun, Khmer-[place]) f alse History Of STD, Gonorrhea, Chlamydia, HPV, Syphi lis false History of Hepatitis false Prior GBS-infected child false Neural Tube Defect (Meningomyelocele, Spina Bifi da, Or Anencephaly) false Previous Carrier Screening Test false Hemophilia Or Other Blood Disorders false Montcalm's Chorea false If Yes, Was Person Tested [...] Domestic Partner Domestic Partner Phone Father Name Tire Changer Status 12/23/19 22 1 CLOSED Fetus Data First Name Last Name Admitted to NICU Weight (g) Sex Living Outcome Pediatric Complications Fetus ID Race Codes Race Delivery Type 3997.05 2704 F Full Term 89624 Ankur Calculation Initial Ankur Date Initial Exam [...]
--- NOTE | 2024-08-26 11:43 | ED.GENADULT ---
HPI - General Adult General Chief complaint: Alcohol/Intoxication Stated complaint: Alcohol withdrawal Time Seen by Provider: 08/26/24 11:17 History of Present Illness HPI narrative: pt. presents to the ED today seeking help for alcohol withdrawals. pt. states her last drink was yesterday around 1600, she had a bottle of vodka pt. has been through treatment and is open to treatment again in triage. 38-year-old woman presenting to the emergency department with her mother requesting treatment for alcohol abuse. Last treatment was last summer. Apparently drank immediately after discharge. Two treatments days and both attempts at treatment have been through [facility]. Detox there as well. Presenting here for help with withdrawal and assistance with getting to treatment. Has been drinking approximately a L of vodka I believe daily. Mom notes have a she appears to be drinking a large amount very quickly. Has not been vomiting. Withdrawal primarily consists of this shakes. Has never had seizures. Has never hallucinated. She just feels that it is time and would like help. Has never tried to intentionally hurt herself. Has been living with mom and dad and more recently aware of continued drinking. Mom also notes that Dania has had electrolyte abnormalities when checked in the past. Apparently in outpatient treatment. 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 Related Data Home Medications ?Medication ?Instructions ?Recorded ?Confirmed sertraline 150 mg capsule 150 mg PO QDAY 10/06/21 08/26/24 disulfiram 250 mg tablet 250 mg PO DAILY 08/26/24 08/26/24 Previous Rx's ?Medication ?Instructions ?Recorded amoxicillin 500 mg tablet 500 mg PO BID #14 tabs 07/01/23 hydroxyzine HCl 25 mg tablet 25 - 50 mg (1 - 2 x 25 mg) PO QID 08/26/24 PRN anxiety, agitation #30 tabs lorazepam 1 mg tablet 1 mg PO TID PRN #8 tabs 08/26/24 Allergies Allergy/AdvReac Type Severity Reaction Status Date / Time No Known Drug Allergies Allergy Verified 08/26/24 11:18 Review of Systems Status of ROS: Reports: 6 or more systems reviewed and unremarkable except as noted in History and below [facility] Medical History UTI (urinary tract infection) ?N39.0 - Urinary tract infection, site not specified (ICD-10) Social History Smoking Status: Never smoker Exam Narrative: Exam Narrative: Pleasant. NAD but generally tremulous. Skin is warm and dry. Well-perfused peripherally. Heart is in elevated rate and regular rhythm without murmur rub or gallop. Lungs are clear. Abdomen is soft and nontender. Oropharynx is little dry. Cranial nerves 2-12 intact. No evidence of self-harm on her person. Const: Vital Signs, click to edit/add: Vital Signs - 24 hr 08/26/24 11:29 08/26/24 13:54 08/26/24 14:01 Temperature 98.5 F Pulse Rate 97 102 H Pulse Rate [Pulse Oximeter] 92 Respiratory Rate 20 Blood Pressure Blood Pressure [Ri ght Upper Arm] 130/102 H Pulse Oximetry 100 99 100 Oxygen Delivery Me thod Room Air 08/26/24 14:15 08/26/24 14:30 08/26/24 14:31 Temperature Pulse Rate 100 107 H 98 Pulse Rate [Pulse Oximeter] Respiratory Rate Blood Pressure 119/88 Blood Pressure [Ri ght Upper Arm] Pulse Oximetry 99 100 96 Oxygen Delivery Me thod 08/26/24 14:45 Temperature Pulse Rate 97 Pulse Rate [Pulse Oximeter] Respiratory Rate Blood Pressure Blood Pressure [Ri ght Upper Arm] Pulse Oximetry 99 Oxygen Delivery Me thod Documenting provider has reviewed patient's vital signs: yes Course Vital Signs Vital signs: Initial Vital Signs Temperature 98.5 F 08/26/24 11:29 Temperature Source Temporal Artery Scan 08/26/24 11:29 Pulse Rate 92 08/26/24 11:29 Respiratory Rate 08/26/24 11:29 Blood Pressure 130/102 H 08/26/24 11:29 Blood Pressure Mean 111 H 08/26/24 11:29 Blood Pressure Position Sitting 08/26/24 11:29 Pulse Oximetry 100 08/26/24 11:29 Oxygen Delivery Method Room Air 08/26/24 11:29 Vital Signs Temperature 98.5 F 08/26/24 11:29 Pulse Rate 92 08/26/24 11:29 Respiratory Rate 20 08/26/24 11:29 Blood Pressure 130/102 H 08/26/24 11:29 Pulse Oximetry 100 08/26/24 11:29 Oxygen Delivery Method Room Air 08/26/24 11:29 Temperature 98.5 F 08/26/24 11:29 Pulse Rate 97 08/26/24 14:45 Respiratory Rate 20 08/26/24 11:29 Blood Pressure 119/88 08/26/24 14:31 Pulse Oximetry 99 08/26/24 14:45 Oxygen Delivery Method Room Air 08/26/24 11:29 Medications Administered Medications: Discontinued Medications Generic Name Dose Route Start Last Admin Trade Name North PRN Reason Stop Dose Admin Folic Acid 1 mg 08/26/24 12:43 08/26/24 13:13 Folic Acid 1 Mg Tablet PO 08/26/24 12:44 1 mg ONCE ONE Administration Sodium Chloride 1,000 mls @ 1,000 mls/hr 08/26/24 12:36 08/26/24 14:45 0.9 % Sodium Chloride 1000 Ml IV 08/26/24 13:35 Infused .Q1H ONE Infusion Thiamine HCl 250 mg/ Sodium 102.5 mls @ 102.5 mls/hr 08/26/24 12:44 08/26/24 14:26 Chloride IVPB 08/26/24 12:45 Infused ONCE ONE Infusion Lorazepam 2 mg 08/26/24 13:03 08/26/24 13:13 Lorazepam 1 Mg Tablet PO 08/26/24 13:04 2 mg ONCE ONE Administration Thiamine HCl 100 mg 08/26/24 12:44 08/26/24 13:13 Thiamine 100 Mg Tablet PO 08/26/24 12:45 100 mg ONCE ONE Administration Medical Decision Making MDM Narrative Medical decision making narrative: Will check for electrolyte abnormalities, hydrate, give thiamine and folate and monitor for degree of withdrawal. Attempt to obtain assistance with detox and treatment. Does not sound as though other drugs or ingestions are an issue. CIWA 15 and given 2 mg of oral lorazepam. Did have a meal here in the emergency department. CIWA of 10 on recheck It appears as though [facility] may have bed/room for Dania Labs are generally reassuring with alcohol level of 0 and sodium just a little bit low at 132. Normal lactate. I would consider Dania medically cleared and appropriate for outpatient detox and treatment. Last few of 6. Unable to get in a timely manner into [place] furthermore might be cost prohibitive. I did speak to [facility] who was considering for cares when Dania and her aunt decided ultimately to return home. Dania was feeling much better. Has legal and financial matters to take care of on Thursday morning. There was a request for some medication to help her get through the weekend to follow-up on Thursday. I discussed my concerns and after discussion of options settled on hydroxyzine and some lorazepam. Overall improved during time of monitoring here in the emergency department See patient discharge plan for further discussion Stay well-hydrated with liquids other than alcohol. Prescribing hydroxyzine for those more anxious times. Small quantity of Ativan if it becomes a little too much; this is just to get by temporarily. Would consider taking a daily multivitamin also containing B12, thiamine, folate. Please return to AA; you said you have an ?awesome group?. Continue participating in your outpatient treatment. I would check in with your/a primary care provider as well for further discussion of medical support toward maintaining sobriety. Best wishes with your efforts at sobriety and your legal troubles. Medical Records Medical records reviewed: Yes I reviewed the patient's medical records Lab Data Lab results reviewed: Yes I reviewed the patient's lab results Labs: Lab Results 08/26/24 08/26/24 Range/Units 11:48 12:50 WBC 5.81 (4.50-11.00) K/uL RBC 4.22 (4.00-5.20) m/uL Hgb 13.2 (12.0-16.0) gm/dL Hct 39.7 (33.0-51.0) % MCV 94 (80-100) fL MCH 31 (26-34) pg MCHC 33 (32-36) gm/dL RDW Coeff of Halie 13.5 (11.5-15.5) % Plt Count 143 (140-440) K/uL Neut % (Auto) 81.3 H (42.0-72.0) % Lymph % (Auto) 13.3 L (20-44) % Carson % (Auto) 5.0 (0.0-11.0) % Eos % (Auto) 0.0 (0.0-7.0) % Baso % (Auto) 0.2 (0.0-3.0) % Neut # (Auto) 4.70 (1.7-7.0) K/uL Lymph # (Auto) 0.80 L (0.90-2.90) K/uL Carson # (Auto) 0.30 (0.00-0.90) K/UL Eos # (Auto) 0.00 (0.00-0.50) K/uL Baso # (Auto) 0.01 (0.00-0.30) K/uL Abs Immat Gran (auto) 0.01 (0.00-0.30) K/uL Imm/Tot Granulo (auto) 0.2 % Sodium 132 L (135-149) mmol/L Potassium 3.8 (3.6-5.1) mmol/L Chloride 99 (96-114) mmol/L Carbon Dioxide 25 (20-32) mmol/L Anion Gap 8 (7-15) mEq/L BUN 11 (5-24) mg/dL Creatinine 0.7 (0.5-1.5) mg/dL Estimated Creat Clear 112.76 Estimated GFR 113 ml/min Glucose 93 (60-115) mg/dL Lactate 1.0 (0.5-1.9) mmol/L Calcium 8.4 (8.4-10.6) mg/dL Total Bilirubin 1.2 (0.1-1.5) mg/dL Direct Bilirubin 0.1 (0.0-0.5) mg/dL AST 42 H (12-35) U/L ALT 30 (4-35) U/L Alkaline Phosphatase 72 (40-150) U/L Total Protein 7.4 (6.0-8.3) g/dL Albumin 4.5 (3.3-5.0) g/dL Urine Opiates Screen Negative (Negative) Ur Oxycodone Screen Negative (Negative) Urine Methadone Screen Negative (Negative) Ur Barbiturates Screen Negative (Negative) U Tricyclic Antidepress Negative (Negative) Ur Phencyclidine Scrn Negative (Negative) Ur Amphetamines Screen Negative (Negative) U Methamphetamines Scrn Negative (Negative) U Benzodiazepines Scrn Negative (Negative) Urine Cocaine Screen Negative (Negative) U Marijuana (THC) Screen Negative (Negative) Ur Drug Screen Comment See Note Ethyl Alcohol < 0.01 (0.01-0.03) % Discharge Plan Discharge Clinical Impression: Alcohol dependence Patient Disposition: Home w/ Parent or Adult Condition: Improved Additional Instructions: Stay well-hydrated with liquids other than alcohol. Prescribing hydroxyzine for those more anxious times. Small quantity of Ativan if it becomes a little too much; this is just to get by temporarily. Would consider taking a daily multivitamin also containing B12, thiamine, folate. Please return to AA; you said you have an ?awesome group?. Continue participating in your outpatient treatment. I would check in with your/a primary care provider as well for further discussion of medical support toward maintaining sobriety. Best wishes with your efforts at sobriety and your legal troubles. Prescriptions: New lorazepam 1 mg tablet 1 mg PO TID PRNQty: 8 0RF hydroxyzine HCl 25 mg tablet 25 - 50 mg PO QID PRN (Reason: anxiety, agitation) Qty: 30 0RF No Action sertraline 150 mg capsule 150 mg PO QDAY amoxicillin 500 mg tablet 500 mg PO BID Qty: 14 0RF disulfiram 250 mg tablet 250 mg PO DAILY Follow Up/Referrals: Provider,Not a Local [Primary Care Provider, Family Practice] Stand Alone Forms: [employer] Info Instructions
[2024-08-26] MEDS: 0.9 % SODIUM CHLORIDE 1000 ml 1,000 ML IV (12:50)
[2024-08-26 12:58] LABS: Basophils Absolute Auto 0.01 K/uL (0.00-0.30); Basophils Percent Auto 0.2 % (0.0-3.0); Hematocrit 39.7 % (33.0-51.0); Hemoglobin* 13.2 gm/dL (12.0-16.0); Immature Granulocytes Abs Auto 0.01 K/uL (0.00-0.30); Immature Granulocytes Pct Auto 0.2 %; Lymphocytes Percent Auto 13.3 % (20-44); Mean Corpuscular HGB Conc 33 gm/dL (32-36); Mean Corpuscular Hemoglobin 31 pg (26-34); Mean Corpuscular Volume 94 fL (80-100); Neutrophils Percent Auto 81.3 % (42.0-72.0); Platelet Count* 143 K/uL (140-440); RDW Coefficient of Variation % 13.5 % (11.5-15.5); Red Blood Count 4.22 m/uL (4.00-5.20); White Blood Count* 5.81 K/uL (4.50-11.00)
[2024-08-26 13:05] LABS: Slide Review Reflex No
[2024-08-26] MEDS: THIAMINE 100 MG TABLET PO (13:13)
[2024-08-26] MEDS: LORazepam 1 MG TABLET 2 MG PO (13:13)
[2024-08-26] MEDS: FOLIC ACID 1 MG TABLET PO (13:13)
[2024-08-26 13:16] LABS: Albumin* 4.5 g/dL (3.3-5.0); Chloride* 99 mmol/L (96-114); Sodium* 132 mmol/L (135-149)
[2024-08-26] MEDS: THIAMINE 250 MG in 0.9 % SODIUM CHLORIDE 100 ml 100 ML 102.5 MG IVPB (13:16)
[2024-08-26 13:17] LABS: Potassium* 3.8 mmol/L (3.6-5.1)
[2024-08-26 13:19] LABS: Alanine Aminotransferase* 30 U/L (4-35); Alkaline Phosphatase* 72 U/L (40-150); Anion Gap 8 mEq/L (7-15); Aspartate Amino Transferase* 42 U/L (12-35); Bilirubin Direct* 0.1 mg/dL (0.0-0.5); Bilirubin Total* 1.2 mg/dL (0.1-1.5); Blood Urea Nitrogen* 11 mg/dL (5-24); Calcium* 8.4 mg/dL (8.4-10.6); Carbon Dioxide* 25 mmol/L (20-32); Creatinine* 0.7 mg/dL (0.5-1.5); Est. Creatinine Clearance* 112.76; Estimated Glomerular Filt Rate 113 ml/min; Glucose* 93 mg/dL (60-115); Total Protein* 7.4 g/dL (6.0-8.3)
[2024-08-26 13:21] LABS: Ethanol* < 0.01 % (0.01-0.03)
[2024-08-26 13:33] LABS: Amphetamine Screen Urine Negative (Negative); Barbiturate Screen Urine Negative (Negative); Benzodiazepines Screen Urine Negative (Negative); Cannabinoid Screen Urine Negative (Negative); Cocaine Screen Urine Negative (Negative); Methadone Screen Urine Negative (Negative); Methamphetamines Screen Urine Negative (Negative); Opiate Screen Urine Negative (Negative); Oxycodone Screen Urine Negative (Negative); Phencyclidine Screen Urine Negative (Negative); Tricyclic Antidepressant Urine Negative (Negative)
== END 2024-08-26 17:20 | disposition home or self-care (01) ==
PROVIDERS: Emergency Provider Family Medicine
DX: F10.20 Alcohol dependence, uncomplicated (principal)
CPT/HCPCS: 36415; 80048; 80076; 80306; 82077; 83605; 85025; 94761; 96365; 99284; A9270; J3411; J7030

== ENCOUNTER 2024-12-02 14:39 | Outpatient (CLI) | payer BC, SELFPAY | END 2024-12-02 14:40 | disposition home or self-care (01) | LOC: LKVREF 14:42 | PROVIDERS: Visit Provider Physician Assistant | DX: K12.1 Other forms of stomatitis (principal); K13.79 Other lesions of oral mucosa | CPT/HCPCS: 86140 ==